=== PATIENT | male | born 1990 | race Hispanic/Latino ===

== ENCOUNTER 2017-09-22 13:26 | Emergency (ER) | payer SELFPAY ==
--- NOTE | 2017-09-22 14:18 | RAD REPORT ---
EXAM DESCRIPTION: CT - Head Brain Wo Cont - 09/22/2017 2:11 pm CLINICAL HISTORY: SEIZURE Headache COMPARISON: Head Brain Wo Cont dated 02/23/2017; Facial Bones W/ Mpr dated 01/03/2017 TECHNIQUE: All CT scans are performed using dose optimization technique as appropriate and may inclu de automated exposure control or mA/KV adjustment according to patient size. FINDINGS: No intracranial hemorrhage, hydrocephalus or extra-axial fluid collection.No areas of brai n edema or evidence of midline shift. The paranasal sinuses and mastoids are clear. The calvarium is intact. IMPRESSION: No acute intracranial abnormality.
[2017-09-22 14:46] LABS: Absolute Lymphocytes (CBC) 2.3 K/uL (0.7-4.9); Absolute Monocytes 0.7 K/uL (0.1-1.3); Absolute Neutrophil 11.6 K/uL (1.8-8.0); Basophils % 0.3 % (0-1.3); Eosinophils % 0.5 % (0-4.4); Hematocrit 44.5 % (39.6-49.0); Lymphocytes % 15.7 % (15.3-44.8); MCH 31.6 pg (27.0-35.0); MCV 95.6 fL (80-100); Monocytes % 4.5 % (3.3-12.3); RBC Red Blood Cell Count 4.66 M/uL (4.33-5.43)
[2017-09-22 14:51] LABS: Protime INR 1.03
[2017-09-22 14:58] LABS: Urine Blood NEGATIVE (NEG); Urine Glucose NEGATIVE (NEG); Urine Protein NEGATIVE (NEG); Urine Specific Gravity 1.015 (1.005-1.030)
[2017-09-22 15:09] LABS: ALT/SGPT 25 U/L (12-78); AST/SGOT 13 U/L (15-37); Alkaline Phosphatase 66 U/L (45-117); BUN Blood Urea Nitrogen 15 mg/dL (7-18); Bicarbonate 27 mmol/L (21-32); Bilirubin Total 0.9 mg/dL (0.2-1.0); Glucose Level 90 mg/dL (74-106); Protein, Total 7.3 g/dL (6.4-8.2); Sodium Level 140 mmol/L (136-145)
[2017-09-22 15:19] LABS: Barbiturates NEGATIVE (NEGATIVE); Benzodiazepines NEGATIVE (NEGATIVE); Cocaine NEGATIVE (NEGATIVE); METHAMPHETAM NEGATIVE (NEGATIVE); Methadone NEGATIVE (NEGATIVE); Opiates NEGATIVE (NEGATIVE); Phencyclidine NEGATIVE (NEGATIVE); THC Cannibis POSITIVE (NEGATIVE)
[2017-09-22 15:22] LABS: Alcohol Serum/Plasma < 3 mg/dL (0-3)
--- NOTE | 2017-09-22 15:59 | ER ---
Nurse's Notes [facility] Name: Jose Schultz Age: 27 yrs Sex: Male : 1990 Arrival Date: 09/22/2017 Time: 13:28 Bed 19 [facility] MD: None, None Diagnosis: Epilepsy and recurrent seizures;Cannabis abuse Presentation: 09/22 13:34 Presenting complaint: Mother states: " He was in bed and had a seizure that started at ph 7:50 and ended at 8:02." Pt reports hx of seizures related to synthetic marijuana use but states that he has not used synthetic since Nov last year. Pt c/o pain in arms and legs, headache and fatigue, denies nausea, pt awake and alert in triage. Transition of care: patient was not received from another setting of care. Onset of symptoms was September 22, 2017. Risk Assessment: Do you want to hurt yourself or someone else? Patient reports no desire to harm self or others. Initial Sepsis Screen: Does the patient meet any 2 criteria? No. Patient's initial sepsis screen is negative. Does the patient have a suspected source of infection? Yes:. Care prior to arrival: None. 13:34 Method Of Arrival: Ambulatory ph 13:34 Acuity: AUDELIA 3 ph Historical: - Allergies: 13:39 No Known Allergies; ph - Home Meds: 13:39 None [Active]; ph - PMHx: 13:39 Seizures; ph - PSHx: 13:39 None; ph - Immunization history:: Adult Immunizations. - Social history:: Smoking status: Patient uses tobacco products, smokes one-half pack cigarettes per day, Patient uses street drugs, marijuana. - Ebola Screening: : Patient negative for fever greater than or equal to 101.5 degrees Fahrenheit, and additional compatible Ebola Virus Disease symptoms. Screenin:43 Abuse screen: Denies threats or abuse. Nutritional screening: No deficits noted. rb1 Tuberculosis screening: No symptoms or risk factors identified. Fall Risk No fall in past 12 months (0 pts). Secondary diagnosis (15 points) seizures, IV access (20 points). Ambulatory Aid- None/Bed Rest/Nurse Assist (0 pts). Gait- Normal/Bed Rest/Wheelchair (0 pts) Mental Status- Oriented to own ability (0 pts). Total Harper Fall Scale indicates Low Risk Score (25-44 pts). Fall prevention measures have been instituted. Side Rails Up X 2 Placed close to Nursing Station 1:1 attendant Assigned to Pt. Frequent Obs/Assesments occuring Family Present and informed to notify staff if they need to leave bedside As available Patient and Family Educated on Fall Prevention Program and strategies. Assessment: 13:43 General: Appears in no apparent distress. comfortable, Behavior is calm, cooperative. rb1 General: Reports fatigue for. Pain: Complains of pain in head, arms, and legs Pain currently is 5 out of 10 on a pain scale. Neuro: Level of Consciousness is awake, alert, obeys commands, Oriented to person, place, time, situation, Reports headache frontal area, since the seizure. Cardiovascular: Capillary refill < 3 seconds is brisk in bilateral fingers. Respiratory: Airway is patent Respiratory effort is even, unlabored, Respiratory pattern is regular, symmetrical. GI: No signs and/or symptoms were reported involving the gastrointestinal system. : No signs and/or symptoms were reported regarding the genitourinary system. Derm: Skin is dry, Skin is normal, Skin temperature is warm. Musculoskeletal: Range of motion: intact in all extremities. 14:38 Reassessment: Patient appears in no apparent distress at this time. No changes from rb1 previously documented assessment. family at bedside. 15:33 Reassessment: Patient appears in no apparent distress at this time. Patient and/or rb1 family updated on plan of care and expected duration. Pain level reassessed. Patient is alert, oriented x 3, equal unlabored respirations, skin warm/dry/pink. 16:21 Reassessment: Patient appears in no apparent distress at this time. No changes from rb1 previously documented assessment. Vital Signs: 13:38 BP 118 / 69; Pulse 81; Resp 18; Temp 98.3; Pulse Ox 98% on R/A; Weight 115.67 kg; ph Height 6 ft. 3 in. (190.50 cm); Pain 5/10; 14:30 BP 119 / 67; Pulse 79; Resp 17; Pulse Ox 99% on R/A; rb1 15:28 BP 121 / 72; Pulse 83; Resp 19; Pulse Ox 99% on R/A; Pain 3/10; rb1 16:18 BP 118 / 64; Pulse 77; Resp 18; Pulse Ox 100% on R/A; rb1 16:37 BP 120 / 75; Pulse 78; Resp 17; Pulse Ox 97% on R/A; rb1 13:38 Body Mass Index 31.87 (115.67 kg, 190.50 cm) ph [place] Coma Score: 13:43 Eye Response: spontaneous(4). Verbal Response: oriented(5). Motor Response: obeys rb1 commands(6). Total: 15. ED Course: 13:28 Patient arrived in ED. sb2 13:28 None, None is Private Physician. sb2 13:38 Triage completed. ph 13:40 Krishna Blas, RAVINDER is PHCP. pm1 13:40 Lior Queen MD is Attending Physician. pm1 13:40 Arm band placed on. ph 13:43 Patient has correct armband on for positive identification. Bed in low position. Call rb1 light in reach. Side rails up X 1. Pulse ox on. NIBP on. 13:43 Seizure precautions initiated. rb1 13:43 Inserted saline lock: 22 gauge in right antecubital area, using aseptic technique. rb1 Blood collected. 14:11 CT Head Brain wo Cont In Process Unspecified. EDNC 14:12 CT completed. Patient tolerated procedure well. Patient moved back from CT. 14:40 Mara Brenner, RN is Primary Nurse. rb1 14:45 EKG done, by semiconductor technician. reviewed by Krishna Blas NP. sm3 15:59 Mathew Arreola MD is Referral Physician. pm1 16:28 No provider procedures requiring assistance completed. IV discontinued, intact, rb1 bleeding controlled, No redness/swelling at site. Pressure dressing applied. Administered Medications: No medications were administered Outcome: 15:59 Discharge ordered by MD. pm1 16:28 Patient left the ED. rb1 16:28 Discharged to home ambulatory, with family. rb1 16:28 Condition: stable 16:28 Discharge instructions given to patient, Instructed on discharge instructions, follow up and referral plans. Demonstrated understanding of instructions, follow-up care, Prescriptions given X none Signatures: Dispatcher [employer] Roxanne Paulino Patricia RN RN Mara Brenner, SIERRA RN rb1 Krishna Blas, RAVINDER HIDE PULLER pm1 Osiris Howell sb2 Maria Teresa Kenyon sm3 Corrections: (The following items were deleted from the chart) 17:54 16:33 Patient left the ED. rb1 rb1
--- NOTE | 2017-09-22 16:00 | EDPHYS ---
Physician Documentation [facility] Name: Jose Schultz Age: 27 yrs Sex: Male : 1990 Arrival Date: 09/22/2017 Time: 13:28 Bed 19 Private MD: None, None ED Physician Lior Queen HPI: 09/22 14:00 This 27 yrs old Male presents to ER via Ambulatory with complaints of Seizure. pm1 17:34 The patient presents after having a single isolated seizure, the episode(s) was pm1 witnessed, by a friend. Character of seizure(s): Loss of consciousness: it is not known if the patient experienced loss of consciousness, Motor activity: generalized, shaking all over, Incontinence: none, Apnea: the patient did not experience apnea, Circulation: the patient did not experience evidence of pulse disturbance. Seizure onset: this morning, at 07:50. Context: occurred at home, occurred while the patient was asleep, Contributing factors: Unknown. Last seizure event related to synthetic marijuana use. Patient admits to using marijuana . Seizure Hx: Cause: Drug abuse. Associated injury: The patient did not suffer any apparent associated injury. Current symptoms: headache, muscle aches to arms and legs. The patient has experienced similar episodes in the past, several times, and the symptoms today are exactly the same. The patient has not recently seen a physician. Historical: - Allergies: 13:39 No Known Allergies; ph - Home Meds: 13:39 None [Active]; ph - PMHx: 13:39 Seizures; ph - PSHx: 13:39 None; ph - Immunization history:: Adult Immunizations. - Social history:: Smoking status: Patient uses tobacco products, smokes one-half pack cigarettes per day, Patient uses street drugs, marijuana. - Ebola Screening: : Patient negative for fever greater than or equal to 101.5 degrees Fahrenheit, and additional compatible Ebola Virus Disease symptoms. ROS: 17:34 Constitutional: Negative for fever, chills, and weight loss, Eyes: Negative for injury, pm1 pain, redness, and discharge, ENT: Negative for injury, pain, and discharge, Neck: Negative for injury, pain, and swelling, Cardiovascular: Negative for chest pain, palpitations, and edema, Respiratory: Negative for shortness of breath, cough, wheezing, and pleuritic chest pain, Abdomen/GI: Negative for abdominal pain, nausea, vomiting, diarrhea, and constipation, Back: Negative for injury and pain, : Negative for injury, bleeding, discharge, and swelling, MS/Extremity: Negative for injury and deformity, Skin: Negative for injury, rash, and discoloration. 17:34 Neuro: Positive for headache, seizure activity, Negative for numbness, tingling, weakness. Exam: 17:34 Constitutional: This is a well developed, well nourished patient who is awake, alert, pm1 and in no acute distress. Head/Face: Normocephalic, atraumatic. Eyes: Pupils equal round and reactive to light, extra-ocular motions intact. Lids and lashes normal. Conjunctiva and sclera are non-icteric and not injected. Cornea within normal limits. Periorbital areas with no swelling, redness, or edema. ENT: Nares patent. No nasal discharge, no septal abnormalities noted. Tympanic membranes are normal and external auditory canals are clear. Oropharynx with no redness, swelling, or masses, exudates, or evidence of obstruction, uvula midline. Mucous membranes moist. Neck: Trachea midline, no thyromegaly or masses palpated, and no cervical lymphadenopathy. Supple, full range of motion without nuchal rigidity, or vertebral point tenderness. No Meningismus. Chest/axilla: Normal chest wall appearance and motion. Nontender with no deformity. No lesions are appreciated. Cardiovascular: Regular rate and rhythm with a normal S1 and S2. No gallops, murmurs, or rubs. Normal PMI, no JVD. No pulse deficits. Respiratory: Lungs have equal breath sounds bilaterally, clear to auscultation and percussion. No rales, rhonchi or wheezes noted. No increased work of breathing, no retractions or nasal flaring. Abdomen/GI: Soft, non-tender, with normal bowel sounds. No distension or tympany. No guarding or rebound. No evidence of tenderness throughout. Back: No spinal tenderness. No costovertebral tenderness. Full range of motion. Skin: Warm, dry with normal turgor. Normal color with no rashes, no lesions, and no evidence of cellulitis. MS/ Extremity: Pulses equal, no cyanosis. Neurovascular intact. Full, normal range of motion. 17:34 Neuro: Orientation: is normal, Mentation: is normal, Cranial nerves: CN II- XII are normal as tested, Cerebellar function: normal finger to nose testing, Motor: moves all fours, strength is normal, strength is 5/5 in all extremities, Sensation: is normal, no obvious gross deficits, Gait: is steady, at a normal pace, without difficulty. Vital Signs: 13:38 BP 118 / 69; Pulse 81; Resp 18; Temp 98.3; Pulse Ox 98% on R/A; Weight 115.67 kg; ph Height 6 ft. 3 in. (190.50 cm); Pain 5/10; 14:30 BP 119 / 67; Pulse 79; Resp 17; Pulse Ox 99% on R/A; rb1 15:28 BP 121 / 72; Pulse 83; Resp 19; Pulse Ox 99% on R/A; Pain 3/10; rb1 16:18 BP 118 / 64; Pulse 77; Resp 18; Pulse Ox 100% on R/A; rb1 16:37 BP 120 / 75; Pulse 78; Resp 17; Pulse Ox 97% on R/A; rb1 13:38 Body Mass Index 31.87 (115.67 kg, 190.50 cm) ph [place] Coma Score: 13:43 Eye Response: spontaneous(4). Verbal Response: oriented(5). Motor Response: obeys rb1 commands(6). Total: 15. MDM: 13:42 Patient medically screened. pm1 15:51 Data reviewed: vital signs. Data interpreted: Pulse oximetry: on room air is 98 %. pm1 Interpretation: normal. Counseling: I had a detailed discussion with the patient and/or guardian regarding: the historical points, exam findings, and any diagnostic results supporting the discharge/admit diagnosis, lab results, radiology results. 09/22 13:53 Order name: CBC with Diff; Complete Time: 15:00 pm1 09/22 13:53 Order name: CMP; Complete Time: 15:22 pm1 09/22 13:53 Order name: UDS; Complete Time: 15:22 pm09/22 13:59 Order name: Acetaminophen; Complete Time: 15:22 pm09/22 13:59 Order name: ETOH Level; Complete Time: 15:22 pm09/22 13:59 Order name: PT-INR; Complete Time: 15:00 pm09/22 13:53 Order name: CT Head Brain wo Cont; Complete Time: 15:00 pm1 09/22 13:53 Order name: IV Saline Lock; Complete Time: 15:06 pm1 09/22 13:53 Order name: Urine Dipstick-Ancillary (obtain specimen); Complete Time: 14:54 pm1 09/22 13:59 Order name: Ptt, Activated; Complete Time: 15:00 pm1 09/22 13:59 Order name: Salicylate; Complete Time: 15:22 pm1 09/22 13:59 Order name: EKG; Complete Time: 13:59 pm1 09/22 13:59 Order name: EKG - Nurse/Tech; Complete Time: 15:07 pm1 09/22 14:54 Order name: Urine Dipstick--Ancillary (enter results); Complete Time: 15:00 eb 09/22 13:59 Order name: Labs collected and sent; Complete Time: 15:06 pm1 Administered Medications: No medications were administered Disposition: 18:03 Co-signature as Attending Physician, Lior Queen MD. rn Disposition: 09/22/17 15:59 Discharged to Home. Impression: Epilepsy and recurrent seizures, Cannabis abuse. - Condition is Stable. - Discharge Instructions: Cannabis Use Disorder, Seizure, Adult, [id number]. - Medication Reconciliation Form, Thank You Letter, Work release form form. - Follow up: Emergency Department; When: As needed; Reason: Worsening of condition. Follow up: Mathew Arreola MD; When: 2 - 3 days; Reason: Recheck today's complaints, Continuance of care, Re-evaluation by your physician. - Problem is new. - Symptoms have improved. Signatures: Dispatcher [employer] EDMS Lior Queen MD MD rn Hall, Patricia, RN RN Mara Crockett RN RN rb1 Krishna Blas, INHALATION THERAPY TEACHER INHALATION THERAPY TEACHER pm1 Corrections: (The following items were deleted from the chart) 16:33 15:59 09/22/2017 15:59 Discharged to Home. Impression: Epilepsy and recurrent seizures; rb1 Cannabis abuse. Condition is Stable. Forms are Medication Reconciliation Form, Thank You Letter, Antibiotic Education, Prescription Opioid Use. Follow up: Emergency Department; When: As needed; Reason: Worsening of condition. Follow up: Mathew Arreola; When: 2 - 3 days; Reason: Recheck today's complaints, Continuance of care, Re-evaluation by your physician. Problem is new. Symptoms have improved. pm1
--- NOTE | 2017-09-23 08:08 | EKG ---
Test Date: 2017-09-22 Test Time: 14:17:07 Acid Etch Operator: HYACINTH MEASUREMENT RESULTS: Intervals: Rate: 70 WY: 166 QRSD: 92 QT: 386 QTc: 416 [place]: P: 1 WY: 166 QRS: 53 T: 13 INTERPRETIVE STATEMENTS: Normal sinus rhythm Normal ECG Compared to ECG 02/23/2017 22:33:13 No significant changes Electronically Signed On 09-23-17 08:03:31 CDT by Daniel Hendricks
== END 2017-09-22 16:33 | disposition home or self-care (01) ==
LOC: ER 13:26
DX: G40.802 Other epilepsy, not intractable, without status epilepticus (principal); F12.10 Cannabis abuse, uncomplicated; F17.210 Nicotine dependence, cigarettes, uncomplicated
CPT/HCPCS: 36415; 70450; 80053; 80307; 80320; 80329; 81003; 85025; 85610; 85730; 93005; 99284

== ENCOUNTER 2017-10-24 16:14 | Emergency (ER) | payer SELFPAY ==
[2017-10-24 16:58] LABS: Absolute Lymphocytes (CBC) 1.1 K/uL (0.7-4.9); Absolute Monocytes 0.6 K/uL (0.1-1.3); Absolute Neutrophil 13.2 K/uL (1.8-8.0); Basophils % 0.1 % (0-1.3); Eosinophils % 0.2 % (0-4.4); Lymphocytes % 7.6 % (15.3-44.8); MCH 31.5 pg (27.0-35.0); MCV 95.2 fL (80-100); MPV 8.3 fL (7.6-11.3); Monocytes % 3.7 % (3.3-12.3); RBC Red Blood Cell Count 4.62 M/uL (4.33-5.43)
--- NOTE | 2017-10-24 17:12 | RAD REPORT ---
EXAM DESCRIPTION: CT - Head Brain Wo Cont - 10/24/2017 4:52 pm CLINICAL HISTORY: Seizure COMPARISON: September 2017 TECHNIQUE: Computed axial tomography of the head was obtained. IV contrast was not requested. All CT scans are performed using dose optimization technique as appropriate and may include automated exposure control or mA/KV adjustment according to patient size. FINDINGS: An intracranial bleed is not seen . The ventricles are normal in caliber. No extra-axial fluid collection is noted. Fluid within the sinuses/ mastoids is not seen. IMPRESSION: No acute intracranial abnormality is seen. If patient's symptoms persist MRI of the bra in would be recommended.
[2017-10-24 17:23] LABS: BUN Blood Urea Nitrogen 15 mg/dL (7-18); Bicarbonate 26 mmol/L (21-32); Glucose Level 142 mg/dL (74-106); Sodium Level 135 mmol/L (136-145)
[2017-10-24 17:46] LABS: Alcohol Serum/Plasma < 3 mg/dL (<3)
[2017-10-24 18:11] LABS: Potassium 3.9 mmol/L (3.5-5.1)
--- NOTE | 2017-10-24 18:47 | EDPHYS ---
Physician Documentation [facility] Name: Jose Schultz Age: 27 yrs Sex: Male : 1990 Arrival Date: 10/24/2017 Time: 16:16 Bed 6 Private MD: None, None ED Physician Primo Loza HPI: 10/24 17:00 This 27 yrs old Male presents to ER via Ambulatory with complaints of Seizure. pm1 17:00 The patient presents with a history of multiple seizures, a total of 2, the episode(s) pm1 was witnessed, by co-worker(s), by family, mother. Character of seizure(s): Loss of consciousness: the patient did not lose consciousness, Motor activity: generalized, Incontinence: incontinent of bladder, Apnea: the patient did not experience apnea, Circulation: the patient did not experience evidence of pulse disturbance. Seizure onset: this morning. Context:. Associated injury: Head/face: left moravian, contusion. The patient has experienced similar episodes in the past, multiple times. The patient has not recently seen a physician, has an appointment scheduled, in 3 day(s), Neurology: Dr. Segundo. Patient with seizure this AM at work. Patient was sent home due to seizure. Patient reports headache to left side of his head with possible contusion. Patient had another seizure at home that was witnessed by his mother. Patient's seizures started about 1 year ago after smoking synthetic marijuana. Patient has continued to use marijuana. Historical: - Allergies: 16:27 No Known Allergies; ch - Home Meds: 16:27 None [Active]; ch - PMHx: 16:27 Seizures; atypical; ch - PSHx: 16:27 None; ch - Immunization history:: Adult Immunizations up to date. - Social history:: Smoking status: Patient uses tobacco products, denies chronic smoking, but will smoke occasionally, Patient uses alcohol, occasionally. street drugs, marijuana. - Ebola Screening: : Patient negative for fever greater than or equal to 101.5 degrees Fahrenheit, and additional compatible Ebola Virus Disease symptoms Patient denies exposure to infectious person Patient denies travel to an Ebola-affected area in the 21 days before illness onset No symptoms or risks identified at this time. ROS: 17:00 Constitutional: Negative for fever, chills, and weight loss, Eyes: Negative for injury, pm1 pain, redness, and discharge, ENT: Negative for injury, pain, and discharge, Neck: Negative for injury, pain, and swelling, Cardiovascular: Negative for chest pain, palpitations, and edema, Respiratory: Negative for shortness of breath, cough, wheezing, and pleuritic chest pain, Abdomen/GI: Negative for abdominal pain, nausea, vomiting, diarrhea, and constipation, Back: Negative for injury and pain, : Negative for injury, bleeding, discharge, and swelling, MS/Extremity: Negative for injury and deformity, Skin: Negative for injury, rash, and discoloration. 17:00 Neuro: Positive for headache, seizure activity, Negative for numbness, weakness. Exam: 17:00 Constitutional: This is a well developed, well nourished patient who is awake, alert, pm1 and in no acute distress. Head/Face: Normocephalic, atraumatic. Eyes: Pupils equal round and reactive to light, extra-ocular motions intact. Lids and lashes normal. Conjunctiva and sclera are non-icteric and not injected. Cornea within normal limits. Periorbital areas with no swelling, redness, or edema. ENT: Nares patent. No nasal discharge, no septal abnormalities noted. Tympanic membranes are normal and external auditory canals are clear. Oropharynx with no redness, swelling, or masses, exudates, or evidence of obstruction, uvula midline. Mucous membranes moist. Neck: Trachea midline, no thyromegaly or masses palpated, and no cervical lymphadenopathy. Supple, full range of motion without nuchal rigidity, or vertebral point tenderness. No Meningismus. Chest/axilla: Normal chest wall appearance and motion. Nontender with no deformity. No lesions are appreciated. Cardiovascular: Regular rate and rhythm with a normal S1 and S2. No gallops, murmurs, or rubs. Normal PMI, no JVD. No pulse deficits. Respiratory: Lungs have equal breath sounds bilaterally, clear to auscultation and percussion. No rales, rhonchi or wheezes noted. No increased work of breathing, no retractions or nasal flaring. Abdomen/GI: Soft, non-tender, with normal bowel sounds. No distension or tympany. No guarding or rebound. No evidence of tenderness throughout. Back: No spinal tenderness. No costovertebral tenderness. Full range of motion. Skin: Warm, dry with normal turgor. Normal color with no rashes, no lesions, and no evidence of cellulitis. MS/ Extremity: Pulses equal, no cyanosis. Neurovascular intact. Full, normal range of motion. 17:00 Neuro: Orientation: is normal, Motor: moves all fours. Vital Signs: 16:28 BP 135 / 78; Pulse 77; Resp 16; Pulse Ox 100% on R/A; Weight 113.4 kg; Height 6 ft. 3 in. (190.50 cm); Pain 8/10; 17:21 BP 119 / 69; Pulse 68; Resp 18; Pulse Ox 100% on R/A; ag 18:47 BP 109 / 62; Pulse 89; Resp 18; Pulse Ox 98% on R/A; ag 16:28 Body Mass Index 31.25 (113.40 kg, 190.50 cm) [place] Coma Score: 16:27 Eye Response: spontaneous(4). Verbal Response: oriented(5). Motor Response: obeys commands(6). Total: 15. MDM: 16:32 Patient medically screened. pm1 18:41 Data reviewed: vital signs. Data interpreted: Pulse oximetry: on room air is 100 %. pm1 Interpretation: normal. Counseling: I had a detailed discussion with the patient and/or guardian regarding: the historical points, exam findings, and any diagnostic results supporting the discharge/admit diagnosis, lab results, radiology results, the need for outpatient follow up, to return to the emergency department if symptoms worsen or persist or if there are any questions or concerns that arise at home. 18:41 ED course: patient wants to go home. Patient does not want to wait for UDS results. pm1 Patient admits to the use of cannabis. Patient with onset of seizures about 1 year ago as the result of using synthetic marijuana. He has an appointment with Dr. Segundo on . Recommended that the patient stops smoking marijuana, because it is possible that he is being exposed to synthetic marijuana . 10/24 16:43 Order name: UDS pm1 10/24 16:44 Order name: Acetaminophen; Complete Time: 18:29 pm1 10/24 16:44 Order name: Basic Metabolic Panel; Complete Time: 18:29 pm1 10/24 16:44 Order name: CBC with Diff; Complete Time: 17:19 pm1 10/24 16:44 Order name: ETOH Level; Complete Time: 18:29 pm1 10/24 16:44 Order name: Salicylate; Complete Time: 18:29 pm1 10/24 16:43 Order name: CT Head Brain wo Cont; Complete Time: 17:19 pm1 10/24 16:44 Order name: Urine Dipstick-Ancillary (obtain specimen); Complete Time: 18:58 pm1 10/24 16:44 Order name: EKG; Complete Time: 16:44 pm1 10/24 16:44 Order name: EKG - Nurse/Tech; Complete Time: 18:22 pm1 10/24 16:44 Order name: IV Saline Lock; Complete Time: 16:49 pm1 10/24 16:44 Order name: Labs collected and sent; Complete Time: 16:49 pm1 10/24 18:55 Order name: Urine Dipstick--Ancillary (enter results) bd 10/24 18:55 Order name: Urine Dipstick-Ancillary EDMS Administered Medications: No medications were administered Disposition: 10/24/17 18:46 Discharged to Home. Impression: Epilepsy and recurrent seizures, Cannabis abuse. - Condition is Stable. - Discharge Instructions: Finding Treatment for Addiction, Cannabis Use Disorder, Seizure, Adult, [id number]. - Family Work Release, SBAR form, Medication Reconciliation Form, Thank You Letter form. - Work release form (10/24/17 19:15). lp1 - Follow up: Emergency Department; When: As needed; Reason: Worsening of condition. Follow up: Reymundo Segundo MD; When: 3 days at scheduled appointment. - Problem is new. - Symptoms have improved. Addendum: 10/27/2017 10:14 Co-signature as Attending Physician, Primo Loza MD I agree with the assessment and k dr plan of care. Signatures: Dispatcher [employer] EDMS Minerva Hunter RN RN ch Verde, Stephanie, RN RN sv Rittger, Kevin, MD MD [facility] Krishna Blas, RAVINDER WINE MAKER pm1 Chelsea Barton RN lp1 Corrections: (The following items were deleted from the chart) 10/24 19:07 18:46 10/24/2017 18:46 Discharged to Home. Impression: Epilepsy and recurrent seizures; sv Cannabis abuse. Condition is Stable. Forms are Medication Reconciliation Form, Thank You Letter, Antibiotic Education, Prescription Opioid Use. Follow up: Emergency Department; When: As needed; Reason: Worsening of condition. Follow up: Reymundo Segundo; When: 3 days at scheduled appointment. Problem is new. Symptoms have improved. pm1
--- NOTE | 2017-10-24 18:47 | ER ---
Nurse's Notes [facility] Name: Jose Schultz Age: 27 yrs Sex: Male : 1990 Arrival Date: 10/24/2017 Time: 16:16 Bed 6 Private MD: None, None Diagnosis: Epilepsy and recurrent seizures;Cannabis abuse Presentation: 10/24 16:25 Presenting complaint: Mother states: he had a seizure this morning at 0730, and then ch again at 1500. when he has a seizure, he makes weird noises, starts moving his arms like he is trying to get something out of the air, he then stood up on the bed and wasn't acting right. he doesn't answer me and get out of the bed staggering, peed on the floor. I got him back on the bed then he started vomiting. Transition of care: patient was not received from another setting of care. Onset of symptoms was October 24, 2017 at 07:30. Risk Assessment: Do you want to hurt yourself or someone else? Patient reports no desire to harm self or others. Initial Sepsis Screen: Does the patient meet any 2 criteria? No. Patient's initial sepsis screen is negative. Does the patient have a suspected source of infection? No. Patient's initial sepsis screen is negative. Care prior to arrival: None. 16:25 Method Of Arrival: Ambulatory 16:25 Acuity: AUDELIA 2 16:28 Note pt is belching and dry heaving, refuses to stop drinking sprite or water to get ch his temp taken. pt is swearing, and smokes "a lot of weed". Triage Assessment: 16:27 General: Appears in no apparent distress. uncomfortable, Behavior is cooperative, ch appropriate for age. Pain: Complains of pain in head, generalized. Neuro: Level of Consciousness is awake, alert, obeys commands, Oriented to person, place, time, situation. Historical: - Allergies: 16:27 No Known Allergies; ch - Home Meds: 16:27 None [Active]; ch - PMHx: 16:27 Seizures; atypical; ch - PSHx: 16:27 None; ch - Immunization history:: Adult Immunizations up to date. - Social history:: Smoking status: Patient uses tobacco products, denies chronic smoking, but will smoke occasionally, Patient uses alcohol, occasionally. street drugs, marijuana. - Ebola Screening: : Patient negative for fever greater than or equal to 101.5 degrees Fahrenheit, and additional compatible Ebola Virus Disease symptoms Patient denies exposure to infectious person Patient denies travel to an Ebola-affected area in the 21 days before illness onset No symptoms or risks identified at this time. Screenin:40 Abuse screen: Denies threats or abuse. Denies injuries from another. Nutritional sv screening: No deficits noted. Tuberculosis screening: No symptoms or risk factors identified. Fall Risk No fall in past 12 months (0 pts). Secondary diagnosis (15 points) seizures, IV access (20 points). Ambulatory Aid- None/Bed Rest/Nurse Assist (0 pts). Gait- Normal/Bed Rest/Wheelchair (0 pts) Mental Status- Oriented to own ability (0 pts). Total Harper Fall Scale indicates Low Risk Score (25-44 pts). Fall prevention measures have been instituted. Side Rails Up X 2 Placed close to Nursing Station Frequent Obs/Assesments occuring Family Present and informed to notify staff if they need to leave bedside As available Patient and Family Educated on Fall Prevention Program and strategies. Assessment: 16:40 General: Appears in no apparent distress. comfortable, Behavior is calm, cooperative, sv appropriate for age, Pt immediately pulled the blanket over his head. Informed pt that I would need to get an IV and blood drawn. Pt stated that he was cold.. Pain: Denies pain. Neuro: Level of Consciousness is awake, alert, obeys commands, Oriented to person, place, time, situation, Moves all extremities. Full function Gait is steady, Speech is normal, Facial symmetry appears normal. Cardiovascular: Patient's skin is warm and dry. Pulses are 3+ in right brachial artery and left brachial artery. Respiratory: Respiratory effort is even, unlabored, Respiratory pattern is regular, symmetrical. GI: No signs and/or symptoms were reported involving the gastrointestinal system. : Parent/caregiver report the patient having that he urinated on the floor earlier. EENT: No signs and/or symptoms were reported regarding the EENT system. Derm: Skin is pink, warm \\T\\ dry. Musculoskeletal: No signs and/or symptoms reported regarding the musculoskeletal system. 17:19 Reassessment: Patient appears in no apparent distress at this time. No changes from sv previously documented assessment. Patient and/or family updated on plan of care and expected duration. Pain level reassessed. Patient is alert, oriented x 3, equal unlabored respirations, skin warm/dry/pink. 18:20 Reassessment: Patient appears in no apparent distress at this time. No changes from sv previously documented assessment. Patient and/or family updated on plan of care and expected duration. Pain level reassessed. Patient is alert, oriented x 3, equal unlabored respirations, skin warm/dry/pink. 19:05 Reassessment: Patient appears in no apparent distress at this time. Patient and/or sv family updated on plan of care and expected duration. Pain level reassessed. Patient is alert, oriented x 3, equal unlabored respirations, skin warm/dry/pink. Vital Signs: 16:28 BP 135 / 78; Pulse 77; Resp 16; Pulse Ox 100% on R/A; Weight 113.4 kg; Height 6 ft. 3 ch in. (190.50 cm); Pain 8/10; 17:21 BP 119 / 69; Pulse 68; Resp 18; Pulse Ox 100% on R/A; ag 18:47 BP 109 / 62; Pulse 89; Resp 18; Pulse Ox 98% on R/A; ag 16:28 Body Mass Index 31.25 (113.40 kg, 190.50 cm) [place] Coma Score: 16:27 Eye Response: spontaneous(4). Verbal Response: oriented(5). Motor Response: obeys commands(6). Total: 15. ED Course: 16:16 Patient arrived in ED. sb2 16:16 None, None is Private Physician. sb2 16:27 Triage completed. 16:28 Arm band placed on left wrist. Patient placed in an exam room. 16:31 Krishna Blas NP is PHCP. pm1 16:31 Primo Loza MD is Attending Physician. pm1 16:33 Lala Marques RN is Primary Nurse. sv 16:35 Patient has correct armband on for positive identification. Placed in gown. Bed in low sv position. Side rails up X2. Adult w/ patient. Seizure precautions initiated. 16:40 Initial lab(s) drawn, by md, sent to lab. Inserted saline lock: 20 gauge in right sv antecubital area, using aseptic technique. Blood collected. Flushed right antecubital with 5 ml normal saline. 16:[address] via stretcher. sv 16:51 CT completed. Patient tolerated procedure well. Patient moved back from CT. vr 16:52 CT Head Brain wo Cont In Process Unspecified. EDMS 17:23 EKG done, by senior service technician. reviewed by Krishna Blas NP. sm3 18:46 Reymundo Segundo MD is Referral Physician. pm1 18:57 Urine Dipstick--Ancillary (enter results) Sent. sv 19:05 No provider procedures requiring assistance completed. IV discontinued, intact, sv bleeding controlled, No redness/swelling at site. Pressure dressing applied. Administered Medications: No medications were administered Outcome: 18:46 Discharge ordered by . pm1 19:05 Discharged to home ambulatory, with family. sv 19:05 Condition: stable 19:05 Discharge instructions given to patient, Instructed on discharge instructions, follow up and referral plans. Demonstrated understanding of instructions, follow-up care. 19:07 Patient left the ED. sv Signatures: Dispatcher [employer] EDID Minerva Hunter, Lala Mckinney RN, ch, RN RN sv Davis, Victoria vr Gallardo, Krishna Hall NP PHARMACY CARE COORDINATOR pm1 Osiris Howell sb2 Maria Teresa Kenyon sm3
[2017-10-24 19:45] LABS: Urine Blood NEGATIVE (NEG); Urine Glucose NEGATIVE (NEG); Urine Protein NEGATIVE (NEG)
[2017-10-24 20:04] LABS: Barbiturates NEGATIVE (NEGATIVE); Benzodiazepines NEGATIVE (NEGATIVE); Cocaine NEGATIVE (NEGATIVE); METHAMPHETAM NEGATIVE (NEGATIVE); Methadone NEGATIVE (NEGATIVE); Opiates NEGATIVE (NEGATIVE); Phencyclidine NEGATIVE (NEGATIVE); THC Cannibis POSITIVE (NEGATIVE)
--- NOTE | 2017-10-24 21:30 | EKG ---
Test Date: 2017-10-24 Test Time: 17:03:31 Rougher Helper: HYACINTH MEASUREMENT RESULTS: Intervals: Rate: 76 NC: 174 QRSD: 104 QT: 350 QTc: 393 [place]: P: 45 NC: 174 QRS: 62 T: 20 INTERPRETIVE STATEMENTS: Normal sinus rhythm Normal ECG Compared to ECG 09/22/2017 14:17:07 No significant changes Electronically Signed On 10-24-17 21:29:59 CDT by Donavon Christian
== END 2017-10-24 19:07 | disposition home or self-care (01) ==
LOC: ER 16:14
DX: F12.10 Cannabis abuse, uncomplicated (principal); Z72.0 Tobacco use
CPT/HCPCS: 36415; 70450; 80048; 80307; 80320; 80329; 81003; 85025; 93005; 99284

== ENCOUNTER 2017-12-12 20:17 | Observation (INO) | payer SELFPAY ==
--- OUTSIDE RECORDS SUMMARY | 2017-12-12 20:32 | XMS REPORT | Continuity of Care Document ---
:1990 Author Organization Interface Problems Problem Status Onset Date Classification Date Comments Source Reported Medications Medication Details Route Status Patient Ordering Order Source Instructions Provider Date Allergies, Adverse Reactions, Alerts Substance Category Reaction Severity Reaction Status Date Comments Source type Reported Immunizations Immunization Date Given Site Status Last Updated Comments Source Results Order Results Value Reference Date Interpretation Comments Source Name Range Vital Signs Vital Sign Value Date Comments Source Encounters Location Location Encounter Encounter Reason Attending ADM DC Status Source Details Type Number For Provider Date Date Visit Outpatient [id number] MARQUISE 10/27 Active [facility] Outpatient [id number] MARQUISE 11/01 Active [facility] Outpatient [id number] MARQUISE 11/29 [facility]2017 Mobile Procedures Procedure Code Date Perfomer Comments Source
[2017-12-12] MEDS ORDERED: NA CHLORIDE 0.9% 1,000 ML ONE ×2 (21:06→23:26)
[2017-12-12] MEDS ORDERED: LEVETIRACETAM 500 MG/5 ML VIAL IV ONE (21:06)
[2017-12-12] MEDS ORDERED: NA CHLORIDE 0.9% 100 ML IV ONE (21:08)
[2017-12-12] MEDS ORDERED: LORazepam 2 MG/ML VIAL ONE (21:32)
[2017-12-12 21:34] LABS: Absolute Lymphocytes (CBC) 1.1 K/uL (0.7-4.9); Absolute Monocytes 0.8 K/uL (0.1-1.3); Absolute Neutrophil 14.4 K/uL (1.8-8.0); Basophils % 0.1 % (0-1.3); Lymphocytes % 6.8 % (15.3-44.8); MCH 32.2 pg (27.0-35.0); MCV 94.8 fL (80-100); MPV 7.8 fL (7.6-11.3); Monocytes % 5.1 % (3.3-12.3); RBC Red Blood Cell Count 4.64 M/uL (4.33-5.43)
[2017-12-12 21:38] LABS: Protime INR 1.15
[2017-12-12 21:56] LABS: ALT/SGPT 19 U/L (12-78); AST/SGOT 12 U/L (15-37); Albumin 4.3 g/dL (3.4-5.0); Alkaline Phosphatase 72 U/L (45-117); BUN Blood Urea Nitrogen 9 mg/dL (7-18); Bicarbonate 24 mmol/L (21-32); Bilirubin Direct 0.3 mg/dL (0-0.2); Bilirubin Total 0.7 mg/dL (0.2-1.0); Glucose Level 112 mg/dL (74-106); Potassium 3.9 mmol/L (3.5-5.1); Protein, Total 7.9 g/dL (6.4-8.2); Sodium Level 137 mmol/L (136-145)
--- NOTE | 2017-12-12 22:59 | EDPHYS ---
Physician Documentation [facility] Name: Jose Schultz Age: 27 yrs Sex: Male : 1990 Arrival Date: 12/12/2017 Time: 20:18 Bed 4 Private MD: ED Physician Duc Simmons HPI: 12/12 21:07 This 27 yrs old Male presents to ER via EMS with complaints of Probable antonio Seizure. 21:07 The patient presents with a history of multiple seizures, a total of 4. Character of antonio seizure(s): Loss of consciousness: it is not known if the patient experienced loss of consciousness, Motor activity: generalized. Seizure onset: just prior to arrival. Context: the seizure(s) was witnessed, by a friend. Seizure Hx: Cause: drug use. Associated injury: The patient did not suffer any apparent associated injury. Current symptoms: confusion. The patient has experienced similar episodes in the past, several times. Historical: - Allergies: 20:28 No Known Allergies; aa1 - Home Meds: 20:28 None [Active]; aa1 - PMHx: 20:28 Seizures; atypical; aa1 - PSHx: 20:28 None; aa1 - Immunization history:: Adult Immunizations unknown. - Social history:: Smoking status: unknown. - Ebola Screening: : Unable to complete screening because patient is disoriented, . - Family history:: not pertinent. - History obtained from: EMS. ROS: 21:07 Constitutional: Negative for fever, chills, and weight loss, Eyes: Negative for injury, antonio pain, redness, and discharge, ENT: Negative for injury, pain, and discharge, Neck: Negative for injury, pain, and swelling, Cardiovascular: Negative for chest pain, palpitations, and edema, Respiratory: Negative for shortness of breath, cough, wheezing, and pleuritic chest pain, Abdomen/GI: Negative for abdominal pain, nausea, vomiting, diarrhea, and constipation, Back: Negative for injury and pain, : Negative for injury, bleeding, discharge, and swelling, MS/Extremity: Negative for injury and deformity, Skin: Negative for injury, rash, and discoloration, Psych: Negative for depression, anxiety, suicide ideation, homicidal ideation, and hallucinations, Allergy/Immunology: Negative for hives, rash, and allergies, Endocrine: Negative for neck swelling, polydipsia, polyuria, polyphagia, and marked weight changes, Hematologic/Lymphatic: Negative for swollen nodes, abnormal bleeding, and unusual bruising. 21:07 Neuro: Positive for altered mental status, seizure activity, weakness. Exam: 21:07 Constitutional: This is a well developed, well nourished patient who is awake, alert, antonio and in no acute distress. Head/Face: Normocephalic, atraumatic. Eyes: Pupils equal round and reactive to light, extra-ocular motions intact. Lids and lashes normal. Conjunctiva and sclera are non-icteric and not injected. Cornea within normal limits. Periorbital areas with no swelling, redness, or edema. ENT: Nares patent. No nasal discharge, no septal abnormalities noted. Tympanic membranes are normal and external auditory canals are clear. Oropharynx with no redness, swelling, or masses, exudates, or evidence of obstruction, uvula midline. Mucous membranes moist. Neck: Trachea midline, no thyromegaly or masses palpated, and no cervical lymphadenopathy. Supple, full range of motion without nuchal rigidity, or vertebral point tenderness. No Meningismus. Chest/axilla: Normal chest wall appearance and motion. Nontender with no deformity. No lesions are appreciated. Cardiovascular: Regular rate and rhythm with a normal S1 and S2. No gallops, murmurs, or rubs. Normal PMI, no JVD. No pulse deficits. Respiratory: Lungs have equal breath sounds bilaterally, clear to auscultation and percussion. No rales, rhonchi or wheezes noted. No increased work of breathing, no retractions or nasal flaring. Abdomen/GI: Soft, non-tender, with normal bowel sounds. No distension or tympany. No guarding or rebound. No evidence of tenderness throughout. Back: No spinal tenderness. No costovertebral tenderness. Full range of motion. Male : Normal genitalia with no discharge or lesions. Skin: Warm, dry with normal turgor. Normal color with no rashes, no lesions, and no evidence of cellulitis. MS/ Extremity: Pulses equal, no cyanosis. Neurovascular intact. Full, normal range of motion. Psych: Awake, alert, with orientation to person, place and time. Behavior, mood, and affect are within normal limits. 21:07 Neuro: Orientation: is normal, appropriate for stated age, no acute changes, Mentation: slow to respond, Memory: is normal, appropriate for stated age, no acute changes, Cranial nerves: grossly normal, is grossly normal based on the patient's age, no acute changes, Motor: is normal, Sensation: is normal, no obvious gross deficits, appropriate Gait: not tested. seizure activity, is not displayed by the patient. 22:57 Neck: ROM/movement: is normal, no acute changes, Meningeal signs: are not present, antonio Kernig's sign is negative, Brudzinski's sign is negative. Vital Signs: 20:18 BP 110 / 56; Pulse 98; Resp 16; Temp 97.6; Pulse Ox 96% ; Weight 113.4 kg; aa1 22:30 BP 147 / 132; Pulse 97; Resp 20 S; Pulse Ox 100% on R/A; cc3 23:20 BP 123 / 63; Pulse 79; Resp 20 S; Pulse Ox 97% on R/A; cc3 12/13 00:18 BP 111 / 68; Pulse 73; Resp 20 S; Temp 99.9; Pulse Ox 97% on R/A; cc3 01:15 BP 125 / 77; Pulse 75; Resp 19 S; Pulse Ox 100% on R/A; cc3 Tommy Coma Score: 12/12 20:20 Eye Response: to voice(3). Verbal Response: confused(4). Motor Response: localizes aa1 pain(5). Total: 12. MDM: 20:25 Patient medically screened. [facility] 21:09 Data reviewed: vital signs, nurses notes, lab test result(s), EKG, radiologic studies, [facility] CT scan. 12/12 20:26 Order name: Acetaminophen; Complete Time: 22:49 [facility] 12/12 20:26 Order name: Basic Metabolic Panel; Complete Time: 22:49 [facility] 12/12 20:26 Order name: CBC with Diff; Complete Time: 22:49 [facility] 12/12 20:26 Order name: ETOH Level; Complete Time: 22:49 [facility] 12/12 20:26 Order name: Hepatic Function; Complete Time: 22:49 [facility] 12/12 20:26 Order name: PT-INR; Complete Time: 22:49 [facility] 12/12 20:26 Order name: Ptt, Activated; Complete Time: 22:49 [facility] 12/12 20:26 Order name: Salicylate; Complete Time: 22:49 [facility] 12/12 20:26 Order name: Urine Drug Screen; Complete Time: 01:23 [facility] 12/12 20:26 Order name: CT Head Brain wo Cont [facility] 12/12 22:54 Order name: Chest Single View XRAY [facility] 12/13 00:19 Order name: Urine Dipstick--Ancillary (enter results) ar 12/12 20:26 Order name: EKG; Complete Time: 20:27 [facility] 12/12 20:26 Order name: EKG - Nurse/Tech; Complete Time: 00:20 [facility] 12/12 20:26 Order name: IV Saline Lock; Complete Time: 21:14 [facility] 12/12 20:26 Order name: Labs collected and sent; Complete Time: 21:14 [facility] 12/12 20:26 Order name: Urine Dipstick-Ancillary (obtain specimen); Complete Time: 00:17 [facility] 12/12 20:26 Order name: Seizure Precautions; Complete Time: 21:14 [facility] 12/12 23:02 Order name: CONS Physician Consult EDMS Administered Medications: 21:10 Drug: NS 0.9% 1000 ml Route: IV; Rate: 1 bolus; Site: left antecubital; 3 22:15 Follow up: Response: No adverse reaction; IV Status: Completed infusion; IV Intake: cc3 1000ml 21:10 Drug: Keppra 1000 mg Route: IV; Rate: per protocol; Site: left antecubital; cc3 21:30 Follow up: Response: No adverse reaction; IV Status: Completed infusion; IV Intake: cc3 100ml 21:30 Drug: Ativan 1 mg Route: IVP; Site: left antecubital; 3 22:00 Follow up: Response: No adverse reaction [facility] 23:30 Drug: Rocephin - (cefTRIAXone) 1 grams Route: IVPB; Infused Over: 30 mins; Site: left cc3 antecubital; 12/13 00:00 Follow up: Response: No adverse reaction; IV Status: Completed infusion; IV Intake: [id number] 12/12 23:36 Drug: NS 0.9% 1000 ml Route: IV; Rate: 1 bolus; Site: left antecubital; 3 12/13 00:45 Follow up: Response: No adverse reaction; IV Status: Completed infusion; IV Intake: cc3 1000ml Disposition: 12/12/17 22:59 Hospitalization ordered by Shila Ko for Observation. Preliminary diagnosis are Epileptic seizures related to external causes, Abuse of non-psychoactive substances, Elevated white blood cell count. - Bed requested for Telemetry/MedSurg (observation). - Status is Observation. cc3 - Condition is Stable. - Problem is new. - Symptoms have improved. UTI on Admission? No Signatures: Dispatcher [employer] EDMS Jenny Chambers RN RN Caro Melendez RN RN aa1 Duc Simmons MD MD cha Cordel, Charlene cc3 Corrections: (The following items were deleted from the chart) 00:34 12/12 22:59 Hospitalization Ordered by Shila Ko MD for Observation. Preliminary kl diagnosis is Epileptic seizures related to external causes; Abuse of non-psychoactive substances; Elevated white blood cell count. Bed requested for Telemetry/MedSurg (observation). Status is Observation. Condition is Stable. Problem is new. Symptoms have improved. UTI on Admission? No. [facility] 12/13 01:32 00:34 12/12/2017 22:59 Hospitalization Ordered by Shila Ko MD for Observation. cc3 Preliminary diagnosis is Epileptic seizures related to external causes; Abuse of non-psychoactive substances; Elevated white blood cell count. Bed requested for Telemetry/MedSurg (observation). Status is Observation. Condition is Stable. Problem is new. Symptoms have improved. UTI on Admission? No. kl
--- NOTE | 2017-12-12 22:59 | ER ---
Nurse's Notes [facility] Name: Jose Schultz Age: 27 yrs Sex: Male : 1990 Arrival Date: 12/12/2017 Time: 20:18 Bed 4 Private MD: Diagnosis: Epileptic seizures related to external causes;Abuse of non-psychoactive substances;Elevated white blood cell count Presentation: 12/12 20:18 Presenting complaint: EMS states: pt's girlfriend reports that pt has had 4 seizures aa1 today. Reports they have been to pt's residence 4 times for seizures today and each time pt was very agitated and refused transport to the ED but this last time they arrived pt was less responsive so he was brought to ED. States pt became agitated again en route to ED and was given Versed 5mg IM. Upon arrival to ED pt responds to stimuli by curling up in position. Refuses to cooperate with triage assessment and H\T\P. EMS reports pt states he does not take any medications for seizures and that pt has known hx of using synthetic marijuana. Transition of care: patient was not received from another setting of care. Onset of symptoms was December 12, 2017. Risk Assessment: Do you want to hurt yourself or someone else? Unable to obtain. Initial Sepsis Screen: Does the patient meet any 2 criteria? Altered Mental Status. HR > 90 bpm. Does the patient have a suspected source of infection? No. Patient's initial sepsis screen is negative. Care prior to arrival: None. 20:18 Method Of Arrival: EMS: [facility] aa1 20:18 Acuity: AUDELIA 2 aa1 Triage Assessment: 20:20 General: Appears in no apparent distress. Behavior is drowsy, listless, uncooperative. aa1 20:20 Pain: Unable to use pain scale. Neuro: Level of Consciousness is awake, confused, cc3 listless, Oriented to person. Historical: - Allergies: 20:28 No Known Allergies; aa1 - Home Meds: 20:28 None [Active]; aa1 - PMHx: 20:28 Seizures; atypical; aa1 - PSHx: 20:28 None; aa1 - Immunization history:: Adult Immunizations unknown. - Social history:: Smoking status: unknown. - Ebola Screening: : Unable to complete screening because patient is disoriented, . - Family history:: not pertinent. - History obtained from: EMS. Screenin:20 Abuse screen: Denies threats or abuse. Denies injuries from another. Nutritional cc3 screening: No deficits noted. Tuberculosis screening: No symptoms or risk factors identified. Fall Risk Secondary diagnosis (15 points) seizures, on seizure precautions. Assessment: 20:18 General: see triage assessment. cc3 21:20 Reassessment: Patient appears in no apparent distress at this time. Patient and/or cc3 family updated on plan of care and expected duration. Pain level reassessed. patient still anxious, father is at bedside. 22:15 Reassessment: patient's father went home and left his number [phone]. cc3 22:59 Reassessment: patient for admission, waiting for admission orders. cc3 23:30 Reassessment: Patient appears in no apparent distress at this time. Patient and/or cc3 family updated on plan of care and expected duration. Pain level reassessed. patient's calm now and lying comfortably in bed, no complaints noted. 12/13 00:38 Reassessment: Patient appears in no apparent distress at this time. Patient and/or cc3 family updated on plan of care and expected duration. Pain level reassessed. Patient is alert, oriented x 3, equal unlabored respirations, skin warm/dry/pink. 01:00 Reassessment: Patient appears in no apparent distress at this time. Patient and/or cc3 family updated on plan of care and expected duration. Pain level reassessed. Patient is alert, oriented x 3, equal unlabored respirations, skin warm/dry/pink. Room available at 425, report handed over to RN Shirley Patel for continuity of care. 01:20 Reassessment: Patient left ER vitally stable by stretcher escorted by planning technician Kenneth [email or web address] for admission. Vital Signs: 12/12 20:18 BP 110 / 56; Pulse 98; Resp 16; Temp 97.6; Pulse Ox 96% ; Weight 113.4 kg; aa1 22:30 BP 147 / 132; Pulse 97; Resp 20 S; Pulse Ox 100% on R/A; cc3 23:20 BP 123 / 63; Pulse 79; Resp 20 S; Pulse Ox 97% on R/A; cc3 12/13 00:18 BP 111 / 68; Pulse 73; Resp 20 S; Temp 99.9; Pulse Ox 97% on R/A; cc3 01:15 BP 125 / 77; Pulse 75; Resp 19 S; Pulse Ox 100% on R/A; cc3 [place] Coma Score: 12/12 20:20 Eye Response: to voice(3). Verbal Response: confused(4). Motor Response: localizes aa1 pain(5). Total: 12. ED Course: 20:18 Patient arrived in ED. aa1 20:20 Arm band placed on right wrist. cc3 20:20 Patient has correct armband on for positive identification. Placed in gown. Bed in low cc3 position. Call light in reach. Side rails up X2. Seizure precautions initiated. 20:24 Duc Simmons MD is Attending Physician. [facility] 20:26 Triage completed. aa1 21:10 Initial lab(s) drawn, by ms, sent to lab. Inserted saline lock: 20 gauge in left ms antecubital area, using aseptic technique. Blood collected. 21:21 Acetaminophen Sent. ds4 21:21 Basic Metabolic Panel Sent. ds4 21:21 CBC with Diff Sent. ds4 21:21 ETOH Level Sent. ds4 21:21 Hepatic Function Sent. ds4 21:21 PT-INR Sent. ds4 21:22 Ptt, Activated Sent. ds4 21:22 Salicylate Sent. ds4 21:36 Radiology exam delayed due to per ED staff pt is not ready at this time. nj 22:45 CT Head Brain wo Cont In Process Unspecified. EDMS 22:58 Shila Ko MD is Hospitalizing Provider. [facility] 23:07 X-ray completed. Portable x-ray completed in exam room. Patient tolerated procedure kw well. 23:08 Chest Single View XRAY In Process Unspecified. EDMS 10 00:20 Urine Drug Screen Sent. ds4 00:20 EKG done, by ED staff, reviewed by Duc Simmons MD. ds4 01:00 No provider procedures requiring assistance completed. Patient admitted, IV remains in cc3 place. Administered Medications: 12/12 21:10 Drug: NS 0.9% 1000 ml Route: IV; Rate: 1 bolus; Site: left antecubital; cc3 22:15 Follow up: Response: No adverse reaction; IV Status: Completed infusion; IV Intake: cc3 1000ml 21:10 Drug: Keppra 1000 mg Route: IV; Rate: per protocol; Site: left antecubital; cc3 21:30 Follow up: Response: No adverse reaction; IV Status: Completed infusion; IV Intake: cc3 100ml 21:30 Drug: Ativan 1 mg Route: IVP; Site: left antecubital; cc3 22:00 Follow up: Response: No adverse reaction cc3 23:30 Drug: Rocephin - (cefTRIAXone) 1 grams Route: IVPB; Infused Over: 30 mins; Site: left cc3 antecubital; 12/13 00:00 Follow up: Response: No adverse reaction; IV Status: Completed infusion; IV Intake: [id number] 12/12 23:36 Drug: NS 0.9% 1000 ml Route: IV; Rate: 1 bolus; Site: left antecubital; cc3 12/13 00:45 Follow up: Response: No adverse reaction; IV Status: Completed infusion; IV Intake: cc3 1000ml Intake: 12/12 21:30 IV: 100ml; Total: 100ml. cc3 22:15 IV: 1000ml; Total: 1100ml. cc3 12/13 00:00 IV: 50ml; Total: 1150ml. cc3 00:45 IV: 1000ml; Total: 2150ml. cc3 Outcome: 12/12 22:59 Decision to Hospitalize by Provider. antonio 12/13 01:00 Admitted to Tele accompanied by tech, via stretcher, room 425, with chart, Report cc3 called to SIERRA Patel Condition: stable Instructed on the need for admit. 01:32 Patient left the ED. cc3 Signatures: Dispatcher [employer] Caro Howell RN RN aa1 Duc Simmons MD MD cha Solis, Maria ms Whitley, Kimberlee kw Swanson, Donovan ds4 Jordan, Nathan nj Cordel, Charlene cc3 Corrections: (The following items were deleted from the chart) 00:32 00:18 BP 111 / 68; Pulse 73bpm; Resp 20bpm; Spontaneous; Pulse Ox 97% RA; cc3 cc3
[2017-12-12] MEDS ORDERED: NA CHLORIDE 0.9% 50 ML IV ONE (23:26)
[2017-12-12] MEDS ORDERED: CEFTRIAXONE 1000 MG/VIAL ONE (23:26)
[2017-12-13] MEDS ORDERED: ONDANSETRON 4 MG/2 ML VIAL IV PRN (00:12)
[2017-12-13] MEDS ORDERED: LORazepam 2 MG/ML VIAL IV PRN (00:12)
[2017-12-13] MEDS ORDERED: MORPHINE 2 MG/ML SYR IV PRN (00:12)
[2017-12-13] MEDS ORDERED: ACETAMINOPHEN 500 MG TAB PO PRN (00:12)
[2017-12-13] MEDS ORDERED: NA CHLORIDE 0.9% 1,000 ML IV SCH (01:00)
[2017-12-13 01:12] LABS: Barbiturates NEGATIVE (NEGATIVE); Benzodiazepines POSITIVE (NEGATIVE); Cocaine NEGATIVE (NEGATIVE); METHAMPHETAM NEGATIVE (NEGATIVE); Methadone NEGATIVE (NEGATIVE); Opiates NEGATIVE (NEGATIVE); Phencyclidine NEGATIVE (NEGATIVE); THC Cannibis POSITIVE (NEGATIVE)
[2017-12-13 01:55] LABS: Urine Blood NEGATIVE (NEG); Urine Glucose NEGATIVE (NEG); Urine Protein TRACE (NEG); Urine Specific Gravity 1.015 (1.005-1.030); Urine pH 5.5 (5.0-7.0)
[2017-12-13 02:18] VITALS: BMI 31.2
--- NOTE | 2017-12-13 02:34 | P.HP ---
Certification for Inpatient Patient admitted to: Observation With expected LOS: <2 Midnights Patient will require the following post-hospital care: None Practitioner: I am a practitioner with admitting privileges, knowledge of patient current condition, hospital course, and medical plan of care. Services: Services provided to patient in accordance with Admission requirements found in Title 42 Section 412.3 of the Code of Federal Regulations Patient History Date of Service: 12/13/17 Reason for admission: New onset seizures History of Present Illness: Patient is a 27yo who was admitted to the hospital with multiple seizures. Patient has been smoking marijuana and synthetic marijuana for over a year. He states he had some abnormal activity about a year ago when he started smoking the synthetic marijuana. He did this because he was on parole. He was needing to be monitored regularly. He started smoking synthetic so it would not be detected. He had been smoking on more of the synthetic as of late NE came into the hospital with multiple seizure activity. He was started on anti epileptics and admitted to the hospital for further treatment. Allergies No Known Allergies Allergy (Verified 12/13/17 01:47) Home Medications: NK [No Home Meds] 12/13/17 - Past Medical/Surgical History Diabetic: No -: Seizure activity - Family History Father History Unknown: Yes - Social History Smoking Status: Current every day smoker Alcohol use: Yes CD- Drugs: Yes Place of Residence: Home Review of Systems 10-point ROS is otherwise unremarkable Physical Examination - Vital Signs Temperature: 99.9 F Blood Pressure: 125/77 Pulse: 75 Respirations: 19 - Physical Exam General: Alert, In no apparent distress, Oriented x3 HEENT: Atraumatic, PERRLA, Mucous membr. moist/pink, EOMI, Sclerae nonicteric Neck: Supple, 2+ carotid pulse no bruit, No LAD, Without JVD or thyroid abnormality Respiratory: Clear to auscultation bilaterally, Normal air movement Cardiovascular: Regular rate/rhythm, Normal S1 S2, No murmurs Gastrointestinal: Normal bowel sounds, Soft and benign, Non-distended, No tenderness Musculoskeletal: No clubbing, No swelling, No tenderness Integumentary: No rashes Neurological: Normal gait, Normal speech, Normal strength at 5/5 x4 extr, Normal tone, Normal affect Lymphatics: No axilla or inguinal lymphadenopathy - Studies Laboratory Data (last 24 hrs) 12/12/17 21:10: PT 13.6 H, INR 1.15, APTT 27.7 12/12/17 21:10: WBC 16.4 H, Hgb 14.9, Hct 44.0, Plt Count 278 12/12/17 21:10: Sodium 137, Potassium 3.9, BUN 9, Creatinine 1.30, Glucose 112 H , Total Bilirubin 0.7, AST 12 L, ALT 19, Alkaline Phosphatase 72 Assessment & Plan - Problems (Diagnosis) (1) Status epilepticus Current Visit: Yes Status: Acute (2) Synthetic cannabis-induced anxiety disorder Current Visit: Yes Status: Acute - Plan Plan: 1. Anti epileptics 2. EEG 3. Counseled regarding cessation of synthetic marijuana 4. Neurology consultation 5. Out of bed and ambulate 6. GI and DVT prophylaxis - Advance Directives Does patient have a Living Will: No Does patient have a Durable POA for Healthcare: No - Code Status/Comfort Care Code Status Assessed: Yes Code Status: Full Code Critical Care: No Time Spent Managing PTS Care (In Minutes): 50
[2017-12-13 07:26] VITALS: BP 125/77; TEMP 99.9
--- NOTE | 2017-12-13 07:33 | EKG ---
Test Date: 2017-12-13 Test Time: 00:14:48 [employer] Cell Assembler: DEVENDRA MEASUREMENT RESULTS: Intervals: Rate: 85 WA: 144 QRSD: 100 QT: 368 QTc: 437 [place]: P: 41 WA: 144 QRS: 86 T: 34 INTERPRETIVE STATEMENTS: Normal sinus rhythm Normal ECG Compared to ECG 10/24/2017 17:03:31 No significant changes Electronically Signed On 12-13-17 07:33:09 CDT by Donavon Christian
--- NOTE | 2017-12-13 08:08 | RAD REPORT ---
EXAM DESCRIPTION: CT - Head Brain Wo Cont - 12/12/2017 10:45 pm CLINICAL HISTORY: Transient alteration of awareness, confusion, altered mental status A preliminary report was provided at the time of the study and reviewed prior to final report. COMPARISON: CT head October 24, 2017 TECHNIQUE: Axial 5 mm thick images of the head were obtained without IV contrast. All CT scans are performed using dose optimization technique as appropriate and may include automated exposure control or mA/KV adjustment according to patient size. FINDINGS: No intracranial hemorrhage, mass, edema or shift of mid-line structures. No acute infarcti on changes seen. No abnormal extra-axial fluid collections. Ventricles are normal. Mastoid air cells and visualized portions of the paranasal sinuses are clear. No acute bony findings. IMPRESSION: Negative non-contrast CT head examination.
--- NOTE | 2017-12-13 08:17 | RAD REPORT ---
EXAM DESCRIPTION: RAD - Chest Single View - 12/12/2017 11:11 pm CLINICAL HISTORY: Seizure, shortness of breath COMPARISON: None. TECHNIQUE: AP portable chest image was obtained 2257 hours . FINDINGS: No focal lung parenchymal process. There is slight motion degradation present. Heart and v asculature are normal. No measurable pleural effusion and no pneumothorax. No acute bony abnormality seen. No acute aortic findings suspected. IMPRESSION: No acute cardiopulmonary process.
--- NOTE | 2017-12-13 08:26 | RAD REPORT ---
EXAM DESCRIPTION: MRI - Brain W/Wo Cont - 12/13/2017 8:09 am CLINICAL HISTORY: Seizures COMPARISON: CT head December 12 TECHNIQUE: Sagittal and axial T1-weighted images were obtained. Axial PD/heavily T2-weighted and T2- FLAIR images were obtained along with axial DWI/ADC mapping sequences. Coronal heavily T2 weighted a nd T1 weighted sequences obtained. Axial and coronal post-contrast T1-weighted images were also obta ined. A 20 ml Multihance contrast following utilized. FINDINGS: No intracranial hemorrhage, mass or acute infarction. There is no edema or shift of midli ne structures. No extra-axial fluid collections. Clancy-matter/white matter junction is preserved. Sig nal voids are seen as a normal finding in the major intracranial vessels. Heterogeneity within the si gmoid and transverse sinuses on postcontrast imaging is normal enhancement in flow related artifacts. Venous sinus thrombosis is not suspected. No focal scarring, heterotopic clancy matter, developmental abnormality or other brain parenchymal abnormality as a seizure focus. Ventricles are normal. No glob e or orbital content abnormality. Sella and suprasellar regions are normal. Post-contrast images show normal enhancement. No dural thickening. Mastoid air cells and paranasal sinuses are clear. IMPRESSION: Negative contrast enhanced MRI of the Brain. No focal finding as a seizure focus.
[2017-12-13] MEDS ORDERED: levETIRAcetam 500 MG in NA CHLORIDE 0.9% 100 ML IV SCH (09:00)
[2017-12-13] MEDS ORDERED: MORPHINE 4 MG/ML SYR IV PRN (09:11)
--- NOTE | 2017-12-13 11:07 | P.DS ---
Admission Date: 12/12/17 Discharge Date: 12/13/17 Primary Care Provider: None; Neurology-Dr. Segundo Disposition: AMA-LEFT AGAINST MEDICAL ADVIC Discharge Condition: GOOD Reason for Admission: New onset seizures Consultations: MRI brain: COMPARISON: CT head December 12 TECHNIQUE: Sagittal and axial T1-weighted images were obtained. Axial PD/ heavily T2-weighted and T2-FLAIR images were obtained along with axial DWI/ADC mapping sequences. Coronal heavily T2 weighted and T1 weighted sequences obtained. Axial and coronal post-contrast T1-weighted images were also obtained. A 20 ml Multihance contrast following utilized. FINDINGS: No intracranial hemorrhage, mass or acute infarction. There is no edema or shift of midline structures. No extra-axial fluid collections. Clancy- matter/white matter junction is preserved. Signal voids are seen as a normal finding in the major intracranial vessels. Heterogeneity within the sigmoid and transverse sinuses on postcontrast imaging is normal enhancement in flow related artifacts. Venous sinus thrombosis is not suspected. No focal scarring, heterotopic clancy matter, developmental abnormality or other brain parenchymal abnormality as a seizure focus. Ventricles are normal. No globe or orbital content abnormality. Sella and suprasellar regions are normal. Post-contrast images show normal enhancement. No dural thickening. Mastoid air cells and paranasal sinuses are clear. IMPRESSION: Negative contrast enhanced MRI of the Brain. No focal finding as a seizure focus. Chest x-ray: Unremarkable. 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 Patient with history of seizures in the past likely related to synthetic marijuana use. Patient with noncompliance with medication. Patient continues to use marijuana. Patient admitted for treatment. Hospital Course: Patient presented with recurrent seizures. Patient with history of seizures likely secondary to synthetic marijuana use. Patient seen by neurology as an outpatient. Patient reports that he was started on medication but he discontinued medication as the medication cause increased drowsiness. The patient admits to using marijuana. He occasionally uses synthetic marijuana at present. Patient was observed and started on anti seizure medication. Patient refused to take medication. MRI brain unremarkable. Patient was to have EEG and neurology evaluation. Patient refused to stay for EEG and a neurology evaluation and recommendation. Patient reports that he does not plan to use anti seizure medication. He understands the risks of not taking medication. He also understands the risks of continuing use of synthetic marijuana and marijuana. Patient was advised to stay. Patient refused. Patient left the hospital against medical advice. Patient signed AMA papers. Recommendation is for the patient to follow up with neurology as an outpatient to further monitor. Cessation education also provided. Patient is to continue with seizure precaution including no swimming, driving, or working heavy machinery. He is not to be on ladders or elevated structures. Fall precautions provided. Vital Signs/Physical Exam: Temp Pulse Resp BP Pulse Ox 99.9 F 75 19 125/77 98 12/13/17 07:27 12/13/17 07:27 12/13/17 07:27 12/13/17 07:27 12/13/17 04:00 General: Alert, In no apparent distress, Oriented x3, Cooperative HEENT: Atraumatic, Mucous membr. moist/pink Neck: Supple Respiratory: Clear to auscultation bilaterally, Normal air movement Cardiovascular: Normal pulses, Regular rate/rhythm Gastrointestinal: Normal bowel sounds, Soft and benign, Non-distended, No tenderness, No masses, No rebound, No guarding Musculoskeletal: No contractures, No erythema, No tenderness, No warmth Integumentary: No tenderness/swelling, No erythema, No warmth, No cyanosis Neurological: Normal speech, Normal strength at 5/5 x4 extr, Normal tone Lymphatics: No axilla or inguinal lymphadenopathy Laboratory Data at Discharge: WBC 16.4 K/uL (4.3-10.9) H 12/12/17 21:10 Hgb 14.9 g/dL (13.6-17.9) 12/12/17 21:10 Hct 44.0 % (39.6-49.0) 12/12/17 21:10 Plt Count 278 K/uL (152-406) 12/12/17 21:10 PT 13.6 SECONDS (9.5-12.5) H 12/12/17 21:10 INR 1.15 12/12/17 21:10 APTT 27.7 SECONDS (24.3-36.9) 12/12/17 21:10 Sodium 137 mmol/L (136-145) 12/12/17 21:10 Potassium 3.9 mmol/L (3.5-5.1) 12/12/17 21:10 BUN 9 mg/dL (7-18) 12/12/17 21:10 Creatinine 1.30 mg/dL (0.55-1.3) 12/12/17 21:10 Glucose 112 mg/dL (74-106) H 12/12/17 21:10 Total Bilirubin 0.7 mg/dL (0.2-1.0) 12/12/17 21:10 AST 12 U/L (15-37) L 12/12/17 21:10 ALT 19 U/L (12-78) 12/12/17 21:10 Alkaline Phosphatase 72 U/L (45-117) 12/12/17 21:10 Home Medications: NK [No Home Meds] 12/13/17 Patient Discharge Instructions: 1. Patient will need to follow up with PCP in 1 week to follow up this hospitalization. 2. Patient presented with recurrent seizures. Patient with history of seizures likely secondary to synthetic marijuana use. Patient seen by neurology as an outpatient. Patient reports that he was started on medication but he discontinued medication as the medication cause increased drowsiness. The patient admits to using marijuana. He occasionally uses synthetic marijuana at present. Patient was observed and started on anti seizure medication. Patient refused to take medication. MRI brain unremarkable. Patient was to have EEG and neurology evaluation. Patient refused to stay for EEG and a neurology evaluation and recommendation. Patient reports that he does not plan to use anti seizure medication. He understands the risks of not taking medication. He also understands the risks of continuing use of synthetic marijuana and marijuana. Patient was advised to stay. Patient refused. Patient left the hospital against medical advice. Patient signed AMA papers. Recommendation is for the patient to follow up with neurology as an outpatient to further monitor. Cessation education also provided. 3. Patient is to continue with seizure precaution including no swimming, driving, or working heavy machinery. He is not to be on ladders or elevated structures. Fall precautions provided. Diet: Regular Activity: Seizure precaution Time spent managing pt's care (in minutes): 55
[2017-12-13 11:23] VITALS: O2SAT 98
== END 2017-12-13 10:50 | disposition left against medical advice (07) ==
LOC: ER 20:17 → ERHOLD 22:59 → 4TH 12-13 01:08
PROVIDERS: ADMIT Hospitalist; ATTEND Hospitalist
DX: R56.9 Unspecified convulsions (principal); F12.10 Cannabis abuse, uncomplicated; F17.210 Nicotine dependence, cigarettes, uncomplicated; Z91.14 Patient's other noncompliance with medication regimen
CPT/HCPCS: 36415; 70450; 70553; 71045; 80048; 80076; 80307; 80320; 80329; 81003; 85025; 85610; 85730; 93005; 96361; 96365; 96367; 96375; 99285; A9577; G0378; J1953; J2270; J2405; J7030

== ENCOUNTER 2018-03-11 13:58 | Emergency (ER) | payer SELFPAY ==
--- OUTSIDE RECORDS SUMMARY | 2018-03-11 14:00 | XMS REPORT | Continuity of Care Document ---
[...] Number For Provider Date Date Visit Outpatient [id number] MARQUISE 10/27 Active [facility] [place] Outpatient [id number] MARQUISE 11/01 Active [facility] [place] Outpatient [id number] MARQUISE 11/29 [facility]2017 [place] Procedures Procedure Code Date Perfomer Comments Source
[2018-03-11] MEDS ORDERED: NA CHLORIDE 0.9% 1,000 ML ONE (14:51)
[2018-03-11] MEDS ORDERED: LORazepam 2 MG/ML VIAL ONE (14:51)
[2018-03-11] MEDS ORDERED: NA CHLORIDE 0.9% 100 ML IV ONE (14:51)
[2018-03-11] MEDS ORDERED: FOSPHENYTOIN PE 500 MG/10 ML VIAL ONE (14:52)
[2018-03-11 16:26] LABS: Absolute Neutrophil 18.4 K/uL (1.8-8.0); Basophils % 0.2 % (0-1.3); Eosinophils % 0.1 % (0-4.4); Hematocrit 45.7 % (39.6-49.0); Lymphocytes % 4.7 % (15.3-44.8); MPV 7.8 fL (7.6-11.3); Monocytes % 4.7 % (3.3-12.3); RBC Red Blood Cell Count 4.77 M/uL (4.33-5.43)
[2018-03-11 16:30] LABS: Protime INR 1.01
[2018-03-11 16:47] LABS: ALT/SGPT 20 U/L (12-78); AST/SGOT 9 U/L (15-37); Albumin 4.5 g/dL (3.4-5.0); Alkaline Phosphatase 62 U/L (45-117); BUN Blood Urea Nitrogen 11 mg/dL (7-18); Bicarbonate 23 mmol/L (21-32); Bilirubin Direct 0.1 mg/dL (0-0.2); Bilirubin Total 0.3 mg/dL (0.2-1.0); Glucose Level 79 mg/dL (74-106); Potassium 4.4 mmol/L (3.5-5.1); Protein, Total 8.3 g/dL (6.4-8.2); Sodium Level 140 mmol/L (136-145)
--- NOTE | 2018-03-11 17:18 | RAD REPORT ---
EXAM DESCRIPTION: CT - Head Brain Wo Cont - 03/11/2018 4:55 pm CLINICAL HISTORY: Seizure with head injury COMPARISON: December 2017 TECHNIQUE: Computed axial tomography of the head was obtained. IV contrast was not requested. All CT scans are performed using dose optimization technique as appropriate and may include automated exposure control or mA/KV adjustment according to patient size. FINDINGS: Left frontal scalp hematoma is present without underlying skull fracture An intracranial bleed is not seen . The ventricles are normal in caliber. No extra-axial fluid collection is noted. Fluid within the sinuses/ mastoids is not seen. IMPRESSION: No acute intracranial abnormality is seen. If patient's symptoms persist MRI of the bra in would be recommended.
[2018-03-11 17:36] LABS: Platelet Estimate ADEQ
[2018-03-11 17:37] LABS: Blood Morphology Comment NOT SEEN (NOT SEEN)
--- NOTE | 2018-03-11 18:10 | ER ---
Nurse's Notes [facility] Name: Jose Schultz Age: 27 yrs Sex: Male : 1990 Arrival Date: 03/11/2018 Time: 14:06 Bed 26 Private MD: Diagnosis: Epilepsy and recurrent seizures Presentation: 03/11 14:08 Presenting complaint: EMS states: 3 seizures in one hour, pt is known seizure pt, non tl3 compliant with meds, unknown medication over one year old full bottle, hematoma to left side of forehead. Transition of care: patient was not received from another setting of care. Onset of symptoms was March 11, 2018. Risk Assessment: Do you want to hurt yourself or someone else? Patient reports no desire to harm self or others. Initial Sepsis Screen: Does the patient meet any 2 criteria? No. Patient's initial sepsis screen is negative. Does the patient have a suspected source of infection? No. Patient's initial sepsis screen is negative. Care prior to arrival: None. 14:08 Method Of Arrival: EMS: [facility] tl3 14:08 Acuity: AUDELIA 3 tl3 Triage Assessment: 14:11 General: Appears in no apparent distress. well developed, well nourished, pt curled up tl3 in position, does not like to be disturbed, able to get basic vital signs, states that he is in no pain at this time. General: Behavior is drowsy. Pain: Denies pain. EENT: No deficits noted. No signs and/or symptoms were reported regarding the EENT system. Neuro: Level of Consciousness is obeys commands, lethargic. Cardiovascular: Heart tones S1 S2 present Patient's skin is warm and dry. Respiratory: Airway is patent Respiratory effort is even, unlabored, Respiratory pattern is regular, symmetrical, Breath sounds are coarse bilaterally. GI: No signs and/or symptoms were reported involving the gastrointestinal system. : No signs and/or symptoms were reported regarding the genitourinary system. Derm: Bruising that is bright red, on left forehead. Musculoskeletal: No signs and/or symptoms reported regarding the musculoskeletal system. Historical: - Allergies: 14:11 No Known Allergies; tl3 - PMHx: 14:11 Seizures; atypical; tl3 - PSHx: 14:11 None; tl3 - Immunization history:: Adult Immunizations unknown. - Social history:: Smoking status: unknown. - Ebola Screening: : No symptoms or risks identified at this time. Screenin:24 Abuse screen: Denies threats or abuse. Nutritional screening: No deficits noted. tl3 Tuberculosis screening: No symptoms or risk factors identified. Fall Risk Secondary diagnosis (15 points) seizures. Assessment: 14:15 Reassessment: Reassessment: called into room by pt girl friend, pt starting to have tl3 another seizure, started at 1415 and lasted for 2 minutes, pt was tonic clonic, seizure precautions in place O\T\ placed during activity, pt was somewhat combative directly after seizure stopped, IV placed to RAC, labs drawn and seizure pads placed on bed. 16:00 Reassessment: No changes from previously documented assessment. pt refuses to allow lab tl3 to redraw, does not want to be messed with only wants to sleep. 17:15 Reassessment: Patient appears in no apparent distress at this time. pt allowed blood tl3 draw for labs. 18:24 Reassessment: Patient appears in no apparent distress at this time. No changes from tl3 previously documented assessment. Alejandro at bedside discussing POC. Vital Signs: 14:15 BP 121 / 58; Pulse 93; Resp 18; Pulse Ox 98% on R/A; tl3 17:15 BP 101 / 66; Pulse 78; Resp 18; Pulse Ox 98% on R/A; tl3 18:36 BP 102 / 68; Pulse 76; Resp 18; Pulse Ox 99% on R/A; tl3 Tommy Coma Score: 18:36 Eye Response: spontaneous(4). Verbal Response: oriented(5). Motor Response: obeys tl3 commands(6). Total: 15. ED Course: 14:06 Patient arrived in ED. tl3 14:10 Triage completed. tl3 14:15 No provider procedures requiring assistance completed. Initial lab(s) drawn, by me, tl3 sent to lab. Inserted saline lock: 20 gauge in right antecubital area, using aseptic technique. Blood collected. 14:15 Patient has correct armband on for positive identification. Bed in low position. Call tl3 light in reach. Side rails up X2. Adult w/ patient. 14:15 Seizure precautions initiated. tl3 14:24 Alejandro Solis PA is PHCP. jr8 14:24 Duc Simmons MD is Attending Physician. jr8 14:37 EKG done, by ED staff, reviewed by Alejandro LI. ed1 14:39 Gunjan Ramos, RN is Primary Nurse. tl3 16:55 CT Head Brain wo Cont In Process Unspecified. EDMS 18:09 Reymundo Segundo MD is Referral Physician. jr8 18:24 IV discontinued, intact, bleeding controlled, No redness/swelling at site. Pressure tl3 dressing applied. 18:37 Arm band placed on. tl3 Administered Medications: 14:40 Drug: CEREbyx 1 grams Route: IVPB; Site: right antecubital; Delivery: Primary tubing; tl3 15:15 Follow up: IV Status: Completed infusion; IV Intake: 100ml tl3 18:14 Not Given (not needed): Ativan 2 mg IVP once tl3 Intake: 15:15 IV: 100ml; Total: 100ml. tl3 Outcome: 18:10 Discharge ordered by MD. jr8 18:24 Discharged to home ambulatory. tl3 18:24 Condition: stable 18:24 Discharge instructions given to patient, family, Instructed on discharge instructions, follow up and referral plans. medication usage, Demonstrated understanding of instructions, follow-up care, medications, Prescriptions given X 1. 18:37 Patient left the ED. tl3 Signatures: Dispatcher [employer] [facility] Kati Jones, WELT WHEELER WELT WHEELER ed1 Alejandro Solis PA PA jr8 Gunjan Ramos, RN RN tl3 Corrections: (The following items were deleted from the chart) 18:19 18:16 Reassessment: tl3 tl3 18:22 18:21 Reassessment: No changes from previously documented assessment. pt refuses to tl3 allow lab to redraw, does not want to be messed with only wants to sleep tl3
--- NOTE | 2018-03-11 18:11 | EDPHYS ---
Physician Documentation [facility] Name: Jose Schultz Age: 27 yrs Sex: Male : 1990 Arrival Date: 03/11/2018 Time: 14:06 Bed 26 Private MD: ED Physician Duc Simmons HPI: 03/11 16:21 This 27 yrs old Male presents to ER via EMS with complaints of Seizure. jr8 16:21 The patient presents with a history of multiple seizures, a total of 4, that last 2 jr8 minute(s). Character of seizure(s): Loss of consciousness: the patient experienced loss of consciousness, Motor activity: generalized, Apnea: the patient did not experience apnea, Circulation: the patient did not experience evidence of pulse disturbance, Eye movements: are unknown. Seizure onset: today. Associated injury: Head/face: contusion, swelling. Current symptoms: postictal. The patient has not experienced similar symptoms in the past. The patient has not recently seen a physician. History of seizures. Non compliant with his medicine. Girlfriend found synthetic 51wan at house today after he had his first seizure. Since then had 2 others at home and one upon arrival to ED . Historical: - Allergies: 14:11 No Known Allergies; tl3 - PMHx: 14:11 Seizures; atypical; tl3 - PSHx: 14:11 None; tl3 - Immunization history:: Adult Immunizations unknown. - Social history:: Smoking status: unknown. - Ebola Screening: : No symptoms or risks identified at this time. ROS: 16:21 Eyes: Negative for injury, pain, redness, and discharge, ENT: Negative for injury, jr8 pain, and discharge, Neck: Negative for injury, pain, and swelling, Cardiovascular: Negative for chest pain, palpitations, and edema, Respiratory: Negative for shortness of breath, cough, wheezing, and pleuritic chest pain, Abdomen/GI: Negative for abdominal pain, nausea, vomiting, diarrhea, and constipation, Back: Negative for injury and pain, MS/Extremity: Negative for injury and deformity. 16:21 Skin: Positive for ecchymosis, swelling, of the forehead. 16:21 Neuro: Positive for seizure activity. Exam: 16:21 Eyes: Pupils equal round and reactive to light, extra-ocular motions intact. Lids and jr8 lashes normal. Conjunctiva and sclera are non-icteric and not injected. Cornea within normal limits. Periorbital areas with no swelling, redness, or edema. ENT: Nares patent. No nasal discharge, no septal abnormalities noted. Tympanic membranes are normal and external auditory canals are clear. Oropharynx with no redness, swelling, or masses, exudates, or evidence of obstruction, uvula midline. Mucous membranes moist. Neck: Trachea midline, no thyromegaly or masses palpated, and no cervical lymphadenopathy. Supple, full range of motion without nuchal rigidity, or vertebral point tenderness. No Meningismus. Cardiovascular: Regular rate and rhythm with a normal S1 and S2. No gallops, murmurs, or rubs. Normal PMI, no JVD. No pulse deficits. Respiratory: Lungs have equal breath sounds bilaterally, clear to auscultation and percussion. No rales, rhonchi or wheezes noted. No increased work of breathing, no retractions or nasal flaring. Abdomen/GI: Soft, non-tender, with normal bowel sounds. No distension or tympany. No guarding or rebound. No evidence of tenderness throughout. Back: No spinal tenderness. No costovertebral tenderness. Full range of motion. Skin: Warm, dry with normal turgor. Normal color with no rashes, no lesions, and no evidence of cellulitis. MS/ Extremity: Pulses equal, no cyanosis. Neurovascular intact. Full, normal range of motion. Neuro: Awake and alert, GCS 15, oriented to person, place, time, and situation. Cranial nerves II-XII grossly intact. Motor strength 5/5 in all extremities. Sensory grossly intact. Cerebellar exam normal. Normal gait. 16:21 Head/face: Noted is ecchymosis, that is mild, of the forehead, hematoma, that is mild, of the forehead. Vital Signs: 14:15 BP 121 / 58; Pulse 93; Resp 18; Pulse Ox 98% on R/A; tl3 17:15 BP 101 / 66; Pulse 78; Resp 18; Pulse Ox 98% on R/A; tl3 18:36 BP 102 / 68; Pulse 76; Resp 18; Pulse Ox 99% on R/A; tl3 Bison Coma Score: 18:36 Eye Response: spontaneous(4). Verbal Response: oriented(5). Motor Response: obeys tl3 commands(6). Total: 15. MDM: 14:24 Patient medically screened. [facility] 18:00 Data reviewed: vital signs, nurses notes, lab test result(s), EKG, radiologic studies, jr8 CT scan, and as a result, I will discharge patient. Data interpreted: Pulse oximetry: on room air is 100 %. Interpretation: normal. Counseling: I had a detailed discussion with the patient and/or guardian regarding: the historical points, exam findings, and any diagnostic results supporting the discharge/admit diagnosis, lab results, radiology results, the need for outpatient follow up, a neurologist, to return to the emergency department if symptoms worsen or persist or if there are any questions or concerns that arise at home. Response to treatment: the patient's symptoms have markedly improved after treatment. ED course: Patient feeling much better. A\T\O x4. No complaints at this time. Talked to him about seizure medication compliance and drug use. Patient stated that he probably should start back on his medications but probably wont take them. Doesn't know if he will f/u with neurologist either. Patient understands the risks of doing that. Significant other stated that she would take care of it and have him follow up. Would come back if worse . 03/11 14:38 Order name: Acetaminophen 03/11 14:38 Order name: Basic Metabolic Panel 03/11 14:38 Order name: CBC with Diff; Complete Time: 17:54 03/11 14:38 Order name: ETOH Level; Complete Time: 16:40 03/11 14:38 Order name: Hepatic Function; Complete Time: 16:52 03/11 14:38 Order name: PT-INR; Complete Time: 16:42 03/11 14:38 Order name: Ptt, Activated; Complete Time: 16:42 03/11 14:38 Order name: Salicylate; Complete Time: 17:24 03/11 14:39 Order name: Acetaminophen Level; Complete Time: 16:52 EDMN 03/11 14:39 Order name: Basic Metabolic Panel; Complete Time: 16:52 EDMS 03/11 16:32 Order name: CT Head Brain wo Cont; Complete Time: 17:24 03/11 17:35 Order name: Manual Differential; Complete Time: 17:54 [facility] 03/11 14:38 Order name: EKG; Complete Time: 14:39 [facility] 03/11 14:38 Order name: EKG - Nurse/Tech; Complete Time: 14:40 8 03/11 14:38 Order name: IV Saline Lock; Complete Time: 18:15 8 03/11 14:38 Order name: Labs collected and sent; Complete Time: 18:15 jr8 Administered Medications: 14:40 Drug: CEREbyx 1 grams Route: IVPB; Site: right antecubital; Delivery: Primary tubing; tl3 15:15 Follow up: IV Status: Completed infusion; IV Intake: 100ml tl3 18:14 Not Given (not needed): Ativan 2 mg IVP once tl3 Disposition: 03/11/18 18:10 Discharged to Home. Impression: Epilepsy and recurrent seizures. - Condition is Stable. - Discharge Instructions: Seizure, Adult. - Prescriptions for Keppra 500 mg Oral Tablet - take 1 tablet by ORAL route every 12 hours; 20 tablet. - Medication Reconciliation Form, Thank You Letter, Antibiotic Education, Prescription Opioid Use form. - Follow up: Reymundo Segundo MD; When: 2 - 3 days; Reason: Recheck today's complaints, Continuance of care, Re-evaluation by your physician. - Problem is new. - Symptoms have improved. Addendum: 03/15/2018 08:02 Co-signature as Attending Physician, Duc Simmons MD I agree with the assessment and c aleman plan of care. Signatures: Dispatcher [employer] [facility] Duc Simmons MD MD cha Roszak, Josh, PA PA jr8 Gunjan Ramos, SIERRA RN tl3 Corrections: (The following items were deleted from the chart) 03/11 17:35 16:55 CBC Smear Scan ordered. [facility] 18:37 18:10 03/11/2018 18:10 Discharged to Home. Impression: Epilepsy and recurrent seizures. tl3 Condition is Stable. Forms are Medication Reconciliation Form, Thank You Letter, Antibiotic Education, Prescription Opioid Use. Follow up: Reymundo Segundo; When: 2 - 3 days; Reason: Recheck today's complaints, Continuance of care, Re-evaluation by your physician. Problem is new. Symptoms have improved. jr8
[2018-03-11 18:44] VITALS: BP 102/68; O2SAT 99
--- NOTE | 2018-03-12 13:32 | EKG ---
Test Date: 2018-03-11 Test Time: 14:30:09 [employer] Registrar: STACIE MEASUREMENT RESULTS: Intervals: Rate: 91 IL: 180 QRSD: 104 QT: 392 QTc: 482 [place]: P: 49 IL: 180 QRS: 77 T: 22 INTERPRETIVE STATEMENTS: Normal sinus rhythm Prolonged QT Abnormal ECG Compared to ECG 12/13/2017 00:14:48 Prolonged QT interval now present Electronically Signed On 03-12-18 13:22:00 [employer] PITCHER by Daniel Hendricks
== END 2018-03-11 18:37 | disposition home or self-care (01) ==
LOC: ER 13:58
DX: G40.802 Other epilepsy, not intractable, without status epilepticus (principal)
CPT/HCPCS: 36415; 70450; 80048; 80076; 80320; 80329; 85025; 85610; 85730; 93005; 96365; 99284; J7030; Q2009

== ENCOUNTER 2018-05-07 12:44 | Emergency (ER) | payer SELFPAY ==
--- OUTSIDE RECORDS SUMMARY | 2018-05-07 12:46 | XMS REPORT | Continuity of Care Document ---
[...] Number For Provider Date Date Visit Outpatient [id number] MARQUISE 10/27 Active [facility] [place] Outpatient [id number] MARQUISE 11/01 Active [facility] [place] Outpatient [id number] MARQUISE 11/29 [facility]2017 [place] Procedures Procedure Code Date Perfomer Comments Source
[2018-05-07 13:28] LABS: Absolute Lymphocytes (CBC) 1.8 K/uL (0.7-4.9); Absolute Monocytes 0.4 K/uL (0.1-1.3); Basophils % 0.3 % (0-1.3); Eosinophils % 1.3 % (0-4.4); Hematocrit 41.6 % (39.6-49.0); Lymphocytes % 24.2 % (15.3-44.8); MPV 7.8 fL (7.6-11.3); Monocytes % 5.2 % (3.3-12.3); RBC Red Blood Cell Count 4.36 M/uL (4.33-5.43)
[2018-05-07] MEDS ORDERED: LORazepam 2 MG/ML VIAL ONE (13:28)
[2018-05-07] MEDS ORDERED: levETIRAcetam 1,000 MG in NA CHLORIDE 0.9% 100 ML IV ONE (13:30)
[2018-05-07 13:34] LABS: Protime INR 1.02
--- NOTE | 2018-05-07 13:55 | RAD REPORT ---
EXAM DESCRIPTION: CT - [id number] - 05/07/2018 1:38 pm CLINICAL HISTORY: Seizure, fall, head and neck injury COMPARISON: None. TECHNIQUE: Axial 5 mm thick images of the head were obtained. Axial 2 mm thick images of the cervic al spine were obtained with sagittal and coronal reconstruction images generated and reviewed. All CT scans are performed using dose optimization technique as appropriate and may include automated exposure control or mA/KV adjustment according to patient size. FINDINGS: No intracranial hemorrhage, mass, edema or acute intracranial finding. No suspicion for ac yuhaaviatam infarction. No extra-axial fluid collections. Mastoid air cells and paranasal sinuses are clear. No globe or orbit abnormality seen. No developmental abnormality evident. No finding as a seizure foc us. Cervical body height and alignment are normal. No disk space narrowing. No fracture or acute bony abn ormality. No paraspinal mass or hematoma. IMPRESSION: Negative CT head examination for acute or significant finding. Negative CT cervical spine examination for acute or significant finding.
[2018-05-07 13:57] LABS: ALT/SGPT 22 U/L (12-78); AST/SGOT 14 U/L (15-37); Alkaline Phosphatase 66 U/L (45-117); BUN Blood Urea Nitrogen 15 mg/dL (7-18); Bicarbonate 25 mmol/L (21-32); Bilirubin Total 0.5 mg/dL (0.2-1.0); Glucose Level 74 mg/dL (74-106); Potassium 3.8 mmol/L (3.5-5.1); Protein, Total 7.5 g/dL (6.4-8.2); Sodium Level 140 mmol/L (136-145)
[2018-05-07] MEDS ORDERED: NA CHLORIDE 0.9% 1,000 ML ONE (14:40)
--- NOTE | 2018-05-07 15:51 | EDPHYS ---
Physician Documentation [facility] Name: Jose Schultz Age: 27 yrs Sex: Male : 1990 Arrival Date: 05/07/2018 Time: 12:50 Bed 6 Private MD: ED Physician William Grayson HPI: 05/07 13:30 This 27 yrs old Male presents to ER via Ambulatory with complaints of Probable pm1 Seizure. 13:30 The patient presents after having a single isolated seizure, that lasted an unknown pm1 period of time. Seizure onset: just prior to arrival. Context: occurred at work, occurred while the patient was in bathroom. Contributing factors: suspected or documented drug use, synthetic marijuana and tramadol. Seizure Hx: Cause: drug abuse and non-compliance with medication, Keppra, Seizure medications: Keppra. Associated injury: Head/face: contusion, Neck: contusion. EMS care: none. Current symptoms: Currently, the patient is not experiencing any symptoms, the patient feels back to baseline. The patient has experienced similar episodes in the past, multiple times. The patient has not recently seen a physician. Patient in the restroom at work and co-worker found him on the floor. Patient with history of seizure activity from lack of compliance with Keppra and with synthetic marijuana abuse. Historical: - Allergies: 12:53 No Known Allergies; aa5 - Home Meds: 12:53 Keppra Oral [Active]; Tramadol Oral [Active]; aa5 - PMHx: 12:53 Seizures; atypical; aa5 - PSHx: 12:53 None; aa5 - Immunization history:: Adult Immunizations unknown. - Ebola Screening: : No symptoms or risks identified at this time. - Social history:: Smoking status: Patient uses tobacco products, denies chronic smoking, but will smoke occasionally. ROS: 13:30 Constitutional: Negative for fever, chills, and weight loss, Eyes: Negative for injury, pm1 pain, redness, and discharge, ENT: Negative for injury, pain, and discharge, Neck: Negative for injury, pain, and swelling, Cardiovascular: Negative for chest pain, palpitations, and edema, Respiratory: Negative for shortness of breath, cough, wheezing, and pleuritic chest pain, Abdomen/GI: Negative for abdominal pain, nausea, vomiting, diarrhea, and constipation, Back: Negative for injury and pain, : Negative for injury, bleeding, discharge, and swelling, MS/Extremity: Negative for injury and deformity, Skin: Negative for injury, rash, and discoloration. 13:30 Neuro: Positive for seizure activity, Negative for headache, numbness, weakness. Exam: 13:30 Constitutional: This is a well developed, well nourished patient who is awake, alert, pm1 and in no acute distress. Head/Face: Normocephalic, atraumatic. Eyes: Pupils equal round and reactive to light, extra-ocular motions intact. Lids and lashes normal. Conjunctiva and sclera are non-icteric and not injected. Cornea within normal limits. Periorbital areas with no swelling, redness, or edema. ENT: Nares patent. No nasal discharge, no septal abnormalities noted. Tympanic membranes are normal and external auditory canals are clear. Oropharynx with no redness, swelling, or masses, exudates, or evidence of obstruction, uvula midline. Mucous membranes moist. 13:30 Chest/axilla: Normal chest wall appearance and motion. Nontender with no deformity. No lesions are appreciated. Cardiovascular: Regular rate and rhythm with a normal S1 and S2. No gallops, murmurs, or rubs. Normal PMI, no JVD. No pulse deficits. Respiratory: Lungs have equal breath sounds bilaterally, clear to auscultation and percussion. No rales, rhonchi or wheezes noted. No increased work of breathing, no retractions or nasal flaring. Abdomen/GI: Soft, non-tender, with normal bowel sounds. No distension or tympany. No guarding or rebound. No evidence of tenderness throughout. Back: No spinal tenderness. No costovertebral tenderness. Full range of motion. Skin: Warm, dry with normal turgor. Normal color with no rashes, no lesions, and no evidence of cellulitis. MS/ Extremity: Pulses equal, no cyanosis. Neurovascular intact. Full, normal range of motion. 13:30 Neck: External neck: contusion right side of neck, C-spine: vertebral tenderness, is not appreciated. 13:30 Neuro: Orientation: is normal, Mentation: is normal, Memory: is normal, Cranial nerves: CN II- XII are normal as tested, Motor: is normal, moves all fours, Sensation: is normal, no obvious gross deficits. Vital Signs: 12:52 Weight 113.4 kg (R); Height 6 ft. 3 in. (190.50 cm) (R); Pain 0/10; aa5 12:55 BP 116 / 74; Pulse 76; Resp 16 S; Temp 98.0(TE); Pulse Ox 99% on R/A; Pain 0/10; aa5 13:15 BP 154 / 83; Pulse 114; Resp 20 S; Pulse Ox 100% on Non-rebreather mask; aa5 13:30 BP 133 / 82; Pulse 119; Resp 22 S; Pulse Ox 100% on Non-rebreather mask; aa5 13:40 BP 114 / 42; Pulse 96; Resp 20 S; Pulse Ox 100% on Non-rebreather mask; aa5 13:45 BP 115 / 53; Pulse 94; Resp 20 S; Pulse Ox 100% on Non-rebreather mask; aa5 13:50 BP 105 / 47; Pulse 90; Resp 24 S; Pulse Ox 100% on Non-rebreather mask; aa5 14:17 BP 103 / 46; Pulse 76; Resp 24; Pulse Ox 100% ; jb1 14:25 BP 92 / 46; Pulse 75; Resp 18 S; Pulse Ox 100% on R/A; aa5 14:40 BP 97 / 63; Pulse 75; Resp 16 S; Pulse Ox 98% on R/A; aa5 15:00 BP 96 / 50; Pulse 71; Resp 22 S; Pulse Ox 99% on R/A; aa5 15:15 BP 96 / 62; Pulse 70; Resp 20 S; Pulse Ox 97% on R/A; aa5 15:32 BP 108 / 64; Pulse 64; Resp 20 S; Pulse Ox 98% on R/A; aa5 16:28 BP 108 / 62; Pulse 66; Resp 18 S; Temp 98.3(TE); Pulse Ox 100% on R/A; Pain 0/10; aa5 12:52 Body Mass Index 31.25 (113.40 kg, 190.50 cm) aa5 14:25 TRANSPORTATION EQUIPMENT PAINTER notified of decreased BP aa5 Tommy Coma Score: 12:53 Eye Response: spontaneous(4). Verbal Response: oriented(5). Motor Response: obeys aa5 commands(6). Total: 15. MDM: 12:51 Patient medically screened. pm1 15:50 Data reviewed: vital signs. Data interpreted: Pulse oximetry: on room air is 98 %. pm1 Interpretation: normal. Counseling: I had a detailed discussion with the patient and/or guardian regarding: the historical points, exam findings, and any diagnostic results supporting the discharge/admit diagnosis, lab results, the need for outpatient follow up, for definitive care, a neurologist, to return to the emergency department if symptoms worsen or persist or if there are any questions or concerns that arise at home. 05/07 12:56 Order name: CBC with Diff; Complete Time: 13:56 pm1 05/07 12:56 Order name: CMP; Complete Time: 14:04 pm1 05/07 12:56 Order name: ETOH Level; Complete Time: 14:04 pm1 05/07 12:58 Order name: Acetaminophen; Complete Time: 14:04 pm1 05/07 12:58 Order name: PT-INR; Complete Time: 13:56 pm1 05/07 12:56 Order name: CT Head C Spine; Complete Time: 13:56 pm1 05/07 12:58 Order name: Ptt, Activated; Complete Time: 13:56 pm1 05/07 12:58 Order name: Salicylate; Complete Time: 13:56 pm1 05/07 12:56 Order name: C-Collar; Complete Time: 13:23 pm1 05/07 12:56 Order name: IV Saline Lock; Complete Time: 13:23 pm1 05/07 12:56 Order name: EKG; Complete Time: 12:57 pm1 05/07 12:56 Order name: EKG - Nurse/Tech; Complete Time: 13:23 pm1 Administered Medications: 13:17 Drug: Ativan 2 mg Route: IVP; Site: right antecubital; aa5 13:20 Follow up: Response: No adverse reaction aa5 13:32 Drug: Ativan 1 mg Route: IVP; Site: right antecubital; aa5 13:34 Follow up: Response: No adverse reaction; No adverse reaction. Pt calm at this time aa5 13:48 Drug: Keppra 1000 mg Route: IV; Rate: calculated rate; Site: right antecubital; aa5 14:03 Follow up: Response: No adverse reaction; IV Status: Completed infusion aa5 13:53 CANCELLED (Physician Discretion): Ativan 1 mg IVP once aa5 14:31 Drug: NS 0.9% 1000 ml Route: IV; Rate: 1000 ml; Site: right antecubital; aa5 15:15 Follow up: IV Status: Completed infusion; IV Intake: 1000ml aa5 Disposition: 05/08 11:55 Co-signature as Attending Physician, William Grayson MD. Disposition: 05/07/18 15:50 Discharged to Home. Impression: Epilepsy and recurrent seizures, Abuse of non-psychoactive substances. - Condition is Stable. - Discharge Instructions: Seizure, Adult, [id number]. - Prescriptions for Keppra 500 mg Oral Tablet - take 1 tablet by ORAL route every 12 hours; 20 tablet. - Medication Reconciliation Form, Thank You Letter, Antibiotic Education, Prescription Opioid Use form. - Follow up: Emergency Department; When: As needed; Reason: Worsening of condition. Follow up: Reymundo Segundo; When: 2 - 3 days; Reason: Recheck today's complaints, Continuance of care, Re-evaluation by your physician. - Problem is new. - Symptoms have improved. Signatures: Dispatcher [employer] EDMS Clare Somers RN RN aa5 Krishna Blas, TRANSPORTATION EQUIPMENT PAINTER TRANSPORTATION EQUIPMENT PAINTER pm1 William Grayson MD MD Corrections: (The following items were deleted from the chart) 05/07 13:53 13:17 Ativan 1 mg IVP once ordered. pm1 aa5 13:53 13:52 Ativan 1 mg IVP once ordered. aa5 aa5 15:52 15:50 05/07/2018 15:50 Discharged to Home. Impression: Epilepsy and recurrent seizures. pm1 Condition is Stable. Forms are Medication Reconciliation Form, Thank You Letter, Antibiotic Education, Prescription Opioid Use. Follow up: Emergency Department; When: As needed; Reason: Worsening of condition. Follow up: Reymundo Segundo; When: 2 - 3 days; Reason: Recheck today's complaints, Continuance of care, Re-evaluation by your physician. Problem is new. Symptoms have improved. pm1 16:42 15:52 05/07/2018 15:50 Discharged to Home. Impression: Epilepsy and recurrent seizures; aa5 Abuse of non-psychoactive substances. Condition is Stable. Discharge Instructions: Seizure, Adult, [id number]. Prescriptions for Keppra 500 mg Oral Tablet - take 1 tablet by ORAL route every 12 hours; 20 tablet. and Forms are Medication Reconciliation Form, Thank You Letter, Antibiotic Education, Prescription Opioid Use. Follow up: Emergency Department; When: As needed; Reason: Worsening of condition. Follow up: Reymundo Segundo; When: 2 - 3 days; Reason: Recheck today's complaints, Continuance of care, Re-evaluation by your physician. Problem is new. Symptoms have improved. pm1
--- NOTE | 2018-05-07 15:51 | ER ---
Nurse's Notes [facility] Name: Jose Schultz Age: 27 yrs Sex: Male : 1990 Arrival Date: 05/07/2018 Time: 12:50 Bed 6 Private MD: Diagnosis: Epilepsy and recurrent seizures;Abuse of non-psychoactive substances Presentation: 05/07 12:50 Presenting complaint: EMS states: pt was found unresponsive by co-worker. EMS reports aa5 pt was altered and uncooperative upon scene arrival. Pt does not recall event. Pt reports he has not taken his Keppra for a few days. Pt currently A \\T\\ O x 4. EMS reports pt refused c-collar. Pt reports occasional use of synthetic marijuana. Transition of care: patient was not received from another setting of care. Onset of symptoms was May 07, 2018. Care prior to arrival: Glucose check: 121. 12:50 Method Of Arrival: Ambulatory aa5 12:50 Acuity: AUDELIA 3 aa5 12:50 Risk Assessment: Do you want to hurt yourself or someone else? Patient reports no aa5 desire to harm self or others. 12:50 Initial Sepsis Screen: Does the patient meet any 2 criteria? No. Patient's initial aa5 sepsis screen is negative. Does the patient have a suspected source of infection? No. Patient's initial sepsis screen is negative. Historical: - Allergies: 12:53 No Known Allergies; aa5 - Home Meds: 12:53 Keppra Oral [Active]; Tramadol Oral [Active]; aa5 - PMHx: 12:53 Seizures; atypical; aa5 - PSHx: 12:53 None; aa5 - Immunization history:: Adult Immunizations unknown. - Ebola Screening: : No symptoms or risks identified at this time. - Social history:: Smoking status: Patient uses tobacco products, denies chronic smoking, but will smoke occasionally. Screenin:13 Abuse screen: Denies threats or abuse. Nutritional screening: No deficits noted. aa5 Tuberculosis screening: No symptoms or risk factors identified. Fall Risk Fall in past 12 months (25 points). IV access (20 points). Total Harper Fall Scale indicates High Risk Score (45 or more points). Fall prevention measures have been instituted. Side Rails Up X 2 Placed Close to Nursing Station. Assessment: 12:52 General: Appears comfortable, Behavior is calm, cooperative. Pain: Denies pain. Neuro: aa5 Level of Consciousness is awake, alert, obeys commands, Oriented to person, place, time, situation, Full Time Paramedic are equal bilaterally Moves all extremities. Speech is normal, Facial symmetry appears normal, Pupils are PERRLA, Pt unable to recall event, pt continues to ask questions about what happened, pt's significant other at bedside explaining what happened. . Cardiovascular: Heart tones S1 S2 present Rhythm is regular. Respiratory: Airway is patent Respiratory effort is even, unlabored, Respiratory pattern is regular, symmetrical, Breath sounds are clear bilaterally. GI: Abdomen is round Bowel sounds present X 4 quads. Abd is soft and non tender X 4 quads. Patient currently denies nausea, vomiting. : No signs and/or symptoms were reported regarding the genitourinary system. EENT: No signs and/or symptoms were reported regarding the EENT system. Derm: Skin is pink, warm \\T\\ dry. Swelling and redness noted to back of neck, pt denies neck pain. Musculoskeletal: Range of motion: intact in all extremities. 13:10 Reassessment: Pt refused c-collar, pt educated about need for c-collar and importance. aa5 Pt states "I don't want it" . 13:17 Reassessment: Seizure activity noted, lasting 15 seconds. Pt became diaphoretic. O2 via aa5 non-rebreather. Pt currently post-ictal. C-collar applied at this time per QUARTER TRIMMER. . 13:25 Reassessment: Pt taken to CT accompanied by me, technician, and lead neurodiagnostic technologist. O2 via aa5 non-rebreather, on monitor. . 13:30 Reassessment: Pt uncooperative in CT, pt attempting to get out of bed. QUARTER TRIMMER notified, and aa5 Ativan 1mg IVP order received. . 13:47 Reassessment: Pt back from CT scan . aa5 13:50 Reassessment: Pt drowsy and sleepy at this time. Pt moves and opens eyes to tactile aa5 stimuli. Equal unlabored respirations, skin is pink/warm/dry . 14:40 Reassessment: Pt resting in bed with eyes closed, equal unlabored respirations, skin is aa5 pink/warm/dry. . 15:32 Reassessment: Pt resting in bed with eyes closed, pt easy to awake to verbal stimuli, aa5 pt reports he is sleepy. . 16:30 Reassessment: Patient is alert, oriented x 3, equal unlabored respirations, skin aa5 warm/dry/pink. Patient denies pain at this time. Vital Signs: 12:52 Weight 113.4 kg (R); Height 6 ft. 3 in. (190.50 cm) (R); Pain 0/10; aa5 12:55 BP 116 / 74; Pulse 76; Resp 16 S; Temp 98.0(TE); Pulse Ox 99% on R/A; Pain 0/10; aa5 13:15 BP 154 / 83; Pulse 114; Resp 20 S; Pulse Ox 100% on Non-rebreather mask; aa5 13:30 BP 133 / 82; Pulse 119; Resp 22 S; Pulse Ox 100% on Non-rebreather mask; aa5 13:40 BP 114 / 42; Pulse 96; Resp 20 S; Pulse Ox 100% on Non-rebreather mask; aa5 13:45 BP 115 / 53; Pulse 94; Resp 20 S; Pulse Ox 100% on Non-rebreather mask; aa5 13:50 BP 105 / 47; Pulse 90; Resp 24 S; Pulse Ox 100% on Non-rebreather mask; aa5 14:17 BP 103 / 46; Pulse 76; Resp 24; Pulse Ox 100% ; jb1 14:25 BP 92 / 46; Pulse 75; Resp 18 S; Pulse Ox 100% on R/A; aa5 14:40 BP 97 / 63; Pulse 75; Resp 16 S; Pulse Ox 98% on R/A; aa5 15:00 BP 96 / 50; Pulse 71; Resp 22 S; Pulse Ox 99% on R/A; aa5 15:15 BP 96 / 62; Pulse 70; Resp 20 S; Pulse Ox 97% on R/A; aa5 15:32 BP 108 / 64; Pulse 64; Resp 20 S; Pulse Ox 98% on R/A; aa5 16:28 BP 108 / 62; Pulse 66; Resp 18 S; Temp 98.3(TE); Pulse Ox 100% on R/A; Pain 0/10; aa5 12:52 Body Mass Index 31.25 (113.40 kg, 190.50 cm) aa5 14:25 QUARTER TRIMMER notified of decreased BP aa5 Tommy Coma Score: 12:53 Eye Response: spontaneous(4). Verbal Response: oriented(5). Motor Response: obeys aa5 commands(6). Total: 15. ED Course: 12:50 Patient arrived in ED. aa5 12:50 Arm band placed on Patient placed in an exam room, on a stretcher. aa5 12:50 Patient has correct armband on for positive identification. Placed in gown. Bed in low aa5 position. Call light in reach. Side rails up X2. 12:51 Krishna Blas, RAVINDER is PHCP. pm1 12:51 William Grayson MD is Attending Physician. pm1 12:52 Triage completed. aa5 12:52 Seizure precautions initiated. aa5 12:57 Kasie Nuñez, SIERRA is Primary Nurse. jl7 12:59 Clare Somers, SIERRA is Primary Nurse. aa5 13:13 Initial lab(s) drawn, by me, sent to lab. Inserted saline lock: 20 gauge in right aa5 antecubital area, using aseptic technique. Blood collected. 13:13 No provider procedures requiring assistance completed. aa5 13:39 CT Head C Spine In Process Unspecified. EDMS 13:39 CT completed. Patient tolerated procedure well. Patient moved to CT. mw3 15:50 Reymundo Segundo MD is Referral Physician. pm1 16:35 IV discontinued, intact, bleeding controlled, No redness/swelling at site. Pressure aa5 dressing applied. Administered Medications: 13:17 Drug: Ativan 2 mg Route: IVP; Site: right antecubital; aa5 13:20 Follow up: Response: No adverse reaction aa5 13:32 Drug: Ativan 1 mg Route: IVP; Site: right antecubital; aa5 13:34 Follow up: Response: No adverse reaction; No adverse reaction. Pt calm at this time aa5 13:48 Drug: Keppra 1000 mg Route: IV; Rate: calculated rate; Site: right antecubital; aa5 14:03 Follow up: Response: No adverse reaction; IV Status: Completed infusion aa5 13:53 CANCELLED (Physician Discretion): Ativan 1 mg IVP once aa5 14:31 Drug: NS 0.9% 1000 ml Route: IV; Rate: 1000 ml; Site: right antecubital; aa5 15:15 Follow up: IV Status: Completed infusion; IV Intake: 1000ml aa5 Intake: 15:15 IV: 1000ml; Total: 1000ml. aa5 Outcome: 15:50 Discharge ordered by . pm1 16:35 Discharged to home ambulatory, with significant other. aa5 16:35 Condition: stable 16:35 Discharge instructions given to patient, Instructed on discharge instructions, follow up and referral plans. medication usage, Demonstrated understanding of instructions, follow-up care, medications, Prescriptions given X 1. 16:42 Patient left the ED. aa5 Signatures: Dispatcher [employer] EDMS AminataMumtaz jb1 Clare Somers, RN RN aa5 Krishna Blas, QUARTER TRIMMER QUARTER TRIMMER pm1 Kasie Nuñez RN RN jl7 Adelina Dodson mw3 Corrections: (The following items were deleted from the chart) 12:53 12:50 Care prior to arrival: None. aa5 aa5 13:50 13:30 Reassessment: Pt uncooperative in CT, QUARTER TRIMMER notified, and Ativan 1mg IVP order aa5 received. . aa5 14:14 13:17 Reassessment: Seizure activity noted, lasting 15 seconds. Pt became diaphoretic. aa5 O2 via non-rebreather. Pt currently post-ictal. . aa5 14:24 12:50 Presenting complaint: EMS states: pt was found unresponsive by co-worker. EMS aa5 reports pt was altered and uncooperative upon scene arrival. Pt does not recall event. Pt reports he has not taken his Keppra for a few days. Pt currently A \\T\\ O x 4 aa5
[2018-05-07 16:52] VITALS: TEMP 98
[2018-05-07 17:05] VITALS: BP 108/64; O2SAT 98
--- NOTE | 2018-05-08 09:13 | EKG ---
Test Date: 2018-05-07 Test Time: 12:57:57 Email Marketing Processor: LISA MEASUREMENT RESULTS: Intervals: Rate: 69 DC: 156 QRSD: 94 QT: 390 QTc: 417 [place]: P: 24 DC: 156 QRS: 95 T: 11 INTERPRETIVE STATEMENTS: Normal sinus rhythm Rightward axis Borderline ECG Compared to ECG 03/11/2018 14:30:09 Right-axis deviation now present Prolonged QT interval no longer present Electronically Signed On 05-08-18 09:12:38 [employer]ER by Donavon Christian
== END 2018-05-07 16:42 | disposition home or self-care (01) ==
LOC: ER 12:44
DX: F55.8 Abuse of other non-psychoactive substances (principal); Z72.0 Tobacco use
CPT/HCPCS: 36415; 70450; 72125; 80053; 80320; 80329; 85025; 85610; 85730; 93005; 96361; 96374; 96375; 99284; J1953; J7030

== ENCOUNTER 2018-05-10 19:41 | Emergency (ER) | payer SELFPAY ==
--- OUTSIDE RECORDS SUMMARY | 2018-05-10 19:44 | XMS REPORT | Continuity of Care Document ---
[...] Number For Provider Date Date Visit Outpatient [id number] MARQUISE 10/27 Active [facility] [place] Outpatient [id number] MARQUISE 11/01 Active [facility] [place] Outpatient [id number] MARQUISE 11/29 [facility]2017 [place] Procedures Procedure Code Date Perfomer Comments Source
--- NOTE | 2018-05-10 22:29 | ER ---
Nurse's Notes [facility] Name: Jose Schultz Age: 27 yrs Sex: Male : 1990 Arrival Date: 05/10/2018 Time: 19:56 Bed 17 Private MD: Diagnosis: Dislocation of proximal interphalangeal joint of finger Presentation: 05/10 20:37 Presenting complaint: Patient states: Pt reports he was in martial arts class and was ea punching boards and injured his right hand, about an hour ago. Transition of care: patient was not received from another setting of care. Onset of symptoms. Risk Assessment: Do you want to hurt yourself or someone else? Patient reports no desire to harm self or others. Initial Sepsis Screen: Does the patient meet any 2 criteria? No. Patient's initial sepsis screen is negative. Does the patient have a suspected source of infection? No. Patient's initial sepsis screen is negative. Care prior to arrival: None. 20:37 Method Of Arrival: Ambulatory ea 20:37 Acuity: AUDELIA 4 ea Triage Assessment: 20:41 General: Appears in no apparent distress. Behavior is calm, cooperative, appropriate ea for age. Pain: Complains of pain in right hand. Musculoskeletal: Range of motion: limited in DIP of right little finger, PIP of right little finger and MCP of right little finger. 20:55 Injury Description: Bruise Deformity sustained to right hand. ls4 Historical: - Allergies: 20:41 No Known Allergies; ea - Home Meds: 20:41 Keppra Oral [Active]; ea - PMHx: 20:41 Seizures; atypical; ea - PSHx: 20:41 None; ea - Immunization history:: Adult Immunizations up to date. - Social history:: Smoking status: Patient uses tobacco products, smokes one-half pack cigarettes per day. - Ebola Screening: : No symptoms or risks identified at this time. Screenin:44 Abuse screen: Denies threats or abuse. Denies injuries from another. Nutritional ls4 screening: No deficits noted. Tuberculosis screening: No symptoms or risk factors identified. Fall Risk None identified. Assessment: 20:45 General: Appears in no apparent distress. Behavior is calm, cooperative. Pain: ls4 Complains of pain in right hand Pain currently is 7 out of 10 on a pain scale. Musculoskeletal: Circulation, motion, and sensation intact. Capillary refill < 3 seconds, Range of motion: intact in all extremities, Swelling present in right hand. 22:37 Reassessment: Patient and/or family updated on plan of care and expected duration. Pain ea level reassessed. Patient is alert, oriented x 3, equal unlabored respirations, skin warm/dry/pink. Discharge instructions given to patient, verbalized the understanding of isntruction Patient states feeling better. Patient states symptoms have improved. Vital Signs: 20:39 BP 150 / 93; Pulse 105; Resp 18; Temp 97.3; Pulse Ox 99% on R/A; Weight 113.4 kg; ea Height 6 ft. 3 in. (190.50 cm) (R); Pain 7/10; 22:38 BP 122 / 80; Pulse 82; Resp 18; Pulse Ox 99% on R/A; ea 20:39 Body Mass Index 31.25 (113.40 kg, 190.50 cm) ea ED Course: 19:56 Patient arrived in ED. ds1 20:39 Triage completed. ea 20:43 Suyapa Conde, RN is Primary Nurse. ls4 20:44 Patient has correct armband on for positive identification. Bed in low position. Call ls4 light in reach. Side rails up X 1. 20:44 No provider procedures requiring assistance completed. Patient did not have IV access ls4 during this emergency room visit. 20:46 ice applied. ls4 20:58 Seth Hong PA is PHCP. [facility] 20:58 Gregory Mclaughlin MD is Attending Physician. jmm 20:58 Arm band placed on. ls4 21:15 X-ray completed. Portable x-ray completed in exam room. Patient tolerated procedure ls3 well. 21:16 XRAY Hand RIGHT 3 View In Process Unspecified. EDMS 22:03 [place] tape MCP of right little finger and PIP of right little finger and DIP of right ls4 little finger. 22:23 Hand Right 3 View XRAY In Process Unspecified. EDMS Administered Medications: No medications were administered Outcome: 22:29 Discharge ordered by . sadaf 22:39 Discharged to home ambulatory, with significant other. ea 22:39 Condition: improved 22:39 Discharge instructions given to patient, Instructed on discharge instructions, follow up and referral plans. Demonstrated understanding of instructions, follow-up care. 22:39 Patient left the ED. ea Signatures: Dispatcher [employer] EDMS Seth Hong PA PA jmm [place], Demi ds1 Daphne Pearl RN Anish Whitmore ea ls3 Suyapa Conde RN RN ls4
--- NOTE | 2018-05-10 22:30 | EDPHYS ---
Physician Documentation [facility] Name: Jose Schultz Age: 27 yrs Sex: Male : 1990 Arrival Date: 05/10/2018 Time: 19:56 Bed 17 Private MD: ED Physician Gregory Mclaughlin HPI: 05/10 21:51 This 27 yrs old Male presents to ER via Ambulatory with complaints of Finger jmm Injury. 21:51 The patient or guardian reports injury, pain. Onset: The symptoms/episode jmm began/occurred acutely, today. Modifying factors: The symptoms are alleviated by nothing, the symptoms are aggravated by nothing. This is a 27 year old male with a history of seizures that presents to the ED with complaints of right fifth finger pain after attempting to break a board with an open hand. . Historical: - Allergies: 20:41 No Known Allergies; ea - Home Meds: 20:41 Keppra Oral [Active]; ea - PMHx: 20:41 Seizures; atypical; ea - PSHx: 20:41 None; ea - Immunization history:: Adult Immunizations up to date. - Social history:: Smoking status: Patient uses tobacco products, smokes one-half pack cigarettes per day. - Ebola Screening: : No symptoms or risks identified at this time. ROS: 21:51 Constitutional: Negative for fever, chills, and weight loss, Cardiovascular: Negative jmm for chest pain, palpitations, and edema, Respiratory: Negative for shortness of breath, cough, wheezing, and pleuritic chest pain. 21:51 MS/extremity: Positive for pain. 21:51 All other systems are negative. Exam: 21:51 Constitutional: This is a well developed, well nourished patient who is awake, alert, jmm and in no acute distress. Head/Face: atraumatic. Eyes: EOMI, no conjunctival erythema appreciated ENT: Moist Mucus Membranes Neck: Trachea midline, Supple Chest/axilla: Normal chest wall appearance and motion. Cardiovascular: Regular rate and rhythm. No edema appreciated Respiratory: Normal respirations, no respiratory distress appreciated Abdomen/GI: Non distended, soft Back: Normal ROM Skin: General appearance color normal 21:51 Musculoskeletal/extremity: deformity noted to the right 5th pip, < 2 sec distal cap refill, NVI. 21:51 Skin: Appearance: Color: normal in color. 21:51 Neuro: Orientation: is normal, Mentation: is normal, Memory: is normal. 21:51 Psych: Behavior/mood is pleasant, cooperative. Vital Signs: 20:39 BP 150 / 93; Pulse 105; Resp 18; Temp 97.3; Pulse Ox 99% on R/A; Weight 113.4 kg; ea Height 6 ft. 3 in. (190.50 cm) (R); Pain 7/10; 22:38 BP 122 / 80; Pulse 82; Resp 18; Pulse Ox 99% on R/A; ea 20:39 Body Mass Index 31.25 (113.40 kg, 190.50 cm) ea Procedures: 21:51 Splinting: Splint applied to right hand using finger splint, applied by tech. Patient [facility] tolerated well. 21:51 Reduction: of the PIP of right little finger, using traction, Immobilized with finger [facility] splint. Patient tolerated well. Post reduction film - reveals normal alignment. MDM: 21:51 Patient medically screened. [facility] 22:28 Data reviewed: vital signs, nurses notes. Counseling: I had a detailed discussion with [facility] the patient and/or guardian regarding: the historical points, exam findings, and any diagnostic results supporting the discharge/admit diagnosis, radiology results, the need for outpatient follow up, to return to the emergency department if symptoms worsen or persist or if there are any questions or concerns that arise at home. 22:28 Data reviewed: radiologic studies, plain films. [facility] 22:28 Data interpreted: Pulse oximetry: on room air is 99 %. Interpretation: normal. Response [facility] to treatment: the patient's symptoms have markedly improved after treatment, and as a result, I will discharge patient. 05/10 20:43 Order name: XRAY Hand RIGHT 3 View ea 05/10 21:56 Order name: Hand Right 3 View XRAY [facility] Administered Medications: No medications were administered Disposition: 05/11 05:09 Co-signature as Attending Physician, Gregory Mclaughlin MD Available for consultation at ps1 all times. . Disposition: 05/10/18 22:29 Discharged to Home. Impression: Dislocation of proximal interphalangeal joint of finger. - Condition is Stable. - Discharge Instructions: Finger Sprain, Adult. - Medication Reconciliation Form, Thank You Letter, Antibiotic Education, Prescription Opioid Use form. - Follow up: Private Physician; When: 2 - 3 days; Reason: Recheck today's complaints, Continuance of care, Re-evaluation by your physician. Signatures: Dispatcher [employer] Seth Gaitan PA PA jmm Antunez, Elena, SIERRA RN Gregory Brown MD MD ps1 Corrections: (The following items were deleted from the chart) 05/10 22:39 22:29 05/10/2018 22:29 Discharged to Home. Impression: Dislocation of proximal ea interphalangeal joint of finger. Condition is Stable. Forms are Medication Reconciliation Form, Thank You Letter, Antibiotic Education, Prescription Opioid Use. Follow up: Private Physician; When: 2 - 3 days; Reason: Recheck today's complaints, Continuance of care, Re-evaluation by your physician. sadaf
[2018-05-10 22:49] VITALS: TEMP 97.3; O2SAT 99
[2018-05-10 22:50] VITALS: BP 122/80
--- NOTE | 2018-05-11 08:11 | RAD REPORT ---
EXAM DESCRIPTION: RAD - Hand Right 3 View - 05/10/2018 9:16 pm CLINICAL HISTORY: Right hand trauma, fifth digit pain COMPARISON: None. FINDINGS: There is dorsal dislocation of the fifth middle phalanx at the PIP joint. Approximately 2 mm of overlap seen. There are no fracture fragment seen. No fracture or other acute bone finding. Delete select IMPRESSION: Dorsal dislocation of fifth middle phalanx. No fracture fragments seen.
--- NOTE | 2018-05-11 08:14 | RAD REPORT ---
EXAM DESCRIPTION: RAD - Hand Right 3 View - 05/10/2018 10:24 pm CLINICAL HISTORY: Post reduction of fifth middle phalanx dislocation COMPARISON: Right hand same date FINDINGS: The right fifth middle phalanx has been reduced to anatomic position. No fracture identifi ed. No other significant findings. No foreign body or other soft tissue abnormality. IMPRESSION: Reduction of the previously detailed right fifth middle phalanx dislocation. No fracture fragments seen.
== END 2018-05-10 22:39 | disposition home or self-care (01) ==
LOC: ER 19:41
PROC: 0RSWXZZ Reposition Right Finger Phalangeal Joint, External Approach (ICD-10-PCS; principal; 2018-05-10)
DX: S63.286A Dislocation of proximal interphalangeal joint of right little finger, initial encounter (principal); W22.09XA Striking against other stationary object, initial encounter; Y93.89 Activity, other specified; Y92.9 Unspecified place or not applicable; F17.210 Nicotine dependence, cigarettes, uncomplicated; G40.909 Epilepsy, unspecified, not intractable, without status epilepticus
CPT/HCPCS: 99283

== ENCOUNTER 2018-09-09 21:55 | Emergency (ER) | payer SELFPAY ==
--- OUTSIDE RECORDS SUMMARY | 2018-09-09 22:11 | XMS REPORT | Summary of Care ---
:1990 Author Organization [facility] Address [address] [place] [address]- Encounter HQ Encntr_alicatrachito(FIN) [id number] Date(s): 12/27/17 - 12/28/17 [facility] [address] [place] [address]- [phone] Vital Signs No data available for this section Problem List Condition Effective Dates Status Health Status Informant Seizures(Confirmed) Active Simple obesity(Confirmed) Active Allergies, Adverse Reactions, Alerts No Known Medication Allergies Medications No data available for this section Results No data available for this section Immunizations No data available for this section Procedures No data available for this section Social History Social History Type Response Smoking Status Current every day smoker; Type: Cigarettes; Exposure to Tobacco Smoke Unable to obtain; Cigarette Smoking Last 365 Days Yes; Reg Smoking Cessation Counseling No entered on: 10/27/17 Assessment and Plan No data available for this section
--- OUTSIDE RECORDS SUMMARY | 2018-09-09 22:11 | XMS REPORT | Continuity of Care Document ---
:1990 Author Organization [facility] Care Team Providers Name Role Phone [facility] Unavailable Unavailable Problems Problem Status Onset Classification Date Comments Source Date Reported Seizures Active Problem 07/17/2018 [facility] Simple Active Problem 07/17/2018 [facility] Medications No Data Provided for This Section Allergies, Adverse Reactions, Alerts Substance Category Reaction Severity Reaction Status Date Comments Source type Reported No Known Assertion Drug [facility] Medication allergy Neuro Allergies Immunizations No Data Provided for This Section Results No Data Provided for This Section Pathology Reports No Data Provided for This Section Diagnostic Reports No Data Provided for This Section Consultation Notes No Data Provided for This Section Discharge Summaries No Data Provided for This Section History and Physicals No Data Provided for This Section Vital Signs No Data Provided for This Section Encounters Location Location Encounter Encounter Reason Attending ADM DC Status Source Details Type Number For Provider Date Date Visit Outpatient [id number] MARQUISE 10/27 Active [facility] [place] [facility] [id number] MARQUISE 11/01 Active [facility]2017 [place] [facility] [id number] MARQUISE 11/29 [facility]2017 [place] [facility] [id number] 12/27 12/29 [facility] /2017 Neuro [place] Records Procedures No Data Provided for This Section Assessment and Plan No Data Provided for This Section Plan of Care No Data Provided for This Section Social History Social History Date Source Social History TypeResponse 10/27/2017 [facility] Neuro Smoking Status Current every day smoker; Type: Cigarettes; Exposure to Tobacco Smoke Unable to obtain; Cigarette Smoking Last 365 Days Yes; Reg Smoking Cessation Counseling No entered on: 10/27/17 Family History No Data Provided for This Section Advance Directives No Data Provided for This Section Functional Status No Data Provided for This Section
[2018-09-09] MEDS ORDERED: NA CHLORIDE 0.9% 100 ML IV ONE (22:35)
[2018-09-09] MEDS ORDERED: LEVETIRACETAM 500 MG/5 ML VIAL IV ONE (22:35)
[2018-09-09] MEDS ORDERED: DIAZEPAM PR ONE (22:48)
[2018-09-09 23:06] LABS: Absolute Lymphocytes (CBC) 4.6 K/uL (0.7-4.9); Basophils % 0.3 % (0-1.3); Eosinophils % 0.8 % (0-4.4); Hematocrit 49.6 % (39.6-49.0); Lymphocytes % 28.5 % (15.3-44.8); MPV 8.4 fL (7.6-11.3); Monocytes % 5.3 % (3.3-12.3)
[2018-09-09 23:20] LABS: Potassium 3.7 mmol/L (3.5-5.1)
[2018-09-09] MEDS ORDERED: NA CHLORIDE 0.9% 2,000 ML ONE (23:51)
--- NOTE | 2018-09-10 01:54 | EDPHYS ---
Physician Documentation [facility] Name: Jose Schultz Age: 28 yrs Sex: Male : 1990 Arrival Date: 09/09/2018 Time: 22:01 Bed 14 Private MD: ED Physician Elbert Anthony HPI: 09/09 23:56 This 28 yrs old Male presents to ER via EMS with complaints of Seizure. snw 23:56 The patient presents after having a single isolated seizure, the episode(s) was snw witnessed, by co-worker(s). Character of seizure(s): Loss of consciousness: the patient experienced loss of consciousness, Motor activity: generalized, Incontinence: none, Apnea: the patient did not experience apnea, Circulation: the patient did not experience evidence of pulse disturbance. Seizure onset: today. Context: the seizure(s) was witnessed, by co-worker(s), occurred at work, occurred while the patient was standing, Contributing factors: suspected or documented drug use, in the past, awaiting UDS. Seizure Hx: Seizure medications: Keppra. Associated injury: Head/face: abrasion, contusion. EMS care:. EMS care: none. Current symptoms: + one seizure in ED. The patient has experienced similar episodes in the past, multiple times. It is unknown whether or not the patient has recently seen a physician. Historical: - Allergies: 21:55 No Known Allergies; cc3 - Home Meds: 21:55 Keppra Oral [Active]; Tramadol Oral [Active]; cc3 - PMHx: 21:55 Seizures; atypical; cc3 - Immunization history:: Adult Immunizations up to date. - Social history:: Smoking status: Patient uses tobacco products, smokes one-half pack cigarettes per day. - Immunization history: Last tetanus immunization: unknown. - Ebola Screening: : No symptoms or risks identified at this time. ROS: 23:55 Constitutional: Positive for seizure. snw 23:58 Eyes: Negative for injury, pain, redness, and discharge, ENT: Negative for injury, snw pain, and discharge, Neck: Negative for injury, pain, and swelling, Cardiovascular: Negative for chest pain, palpitations, and edema, Respiratory: Negative for shortness of breath, cough, wheezing, and pleuritic chest pain, Abdomen/GI: Negative for abdominal pain, nausea, vomiting, diarrhea, and constipation, Back: Negative for injury and pain, : Negative for injury, bleeding, discharge, and swelling, MS/Extremity: Negative for injury and deformity, Skin: Negative for injury, rash, and discoloration, Neuro: Negative for headache, weakness, numbness, tingling, and seizure, Psych: Negative for depression, anxiety, suicide ideation, homicidal ideation, and hallucinations. Exam: 22:37 Neuro: seizure activity, grand mal type is displayed, on my arrival to room, + suction snw and pt in side lying position, + diastat to room. 09/10 01:55 Constitutional: This is a well developed, well nourished patient who is awake, alert, snw and in no acute distress. Head/Face: Normocephalic, small contusion to forehead at hairline, nasal bridge Eyes: Pupils equal round and reactive to light, extra-ocular motions intact. Lids and lashes normal. Conjunctiva and sclera are non-icteric and not injected. Cornea within normal limits. Periorbital areas with no swelling, redness, or edema. ENT: Nares patent. No nasal discharge, no septal abnormalities noted. Tympanic membranes are normal and external auditory canals are clear. Oropharynx with no redness, swelling, or masses, exudates, or evidence of obstruction, uvula midline. Mucous membranes moist. Neck: Trachea midline, no thyromegaly or masses palpated, and no cervical lymphadenopathy. Supple, full range of motion without nuchal rigidity, or vertebral point tenderness. No Meningismus. Chest/axilla: Normal chest wall appearance and motion. Nontender with no deformity. No lesions are appreciated. Cardiovascular: Regular rate and rhythm with a normal S1 and S2. No gallops, murmurs, or rubs. Normal PMI, no JVD. No pulse deficits. Respiratory: Lungs have equal breath sounds bilaterally, clear to auscultation and percussion. No rales, rhonchi or wheezes noted. No increased work of breathing, no retractions or nasal flaring. Abdomen/GI: Soft, non-tender, with normal bowel sounds. No distension or tympany. No guarding or rebound. No evidence of tenderness throughout. Back: No spinal tenderness. No costovertebral tenderness. Full range of motion. Skin: Warm, dry with normal turgor. Normal color with no rashes, no lesions, and no evidence of cellulitis. MS/ Extremity: Pulses equal, no cyanosis. Neurovascular intact. Full, normal range of motion. Neuro: Awake and alert, GCS 15, oriented to person, place, time, and situation. Cranial nerves II-XII grossly intact. Motor strength 5/5 in all extremities. Sensory grossly intact. Cerebellar exam normal. Normal gait. Psych: Awake, alert, with orientation to person, place and time. Behavior, mood, and affect are within normal limits. Vital Signs: 09/09 21:55 BP 132 / 75; Pulse 102; Resp 20 S; Pulse Ox 95% on R/A; Weight 104.33 kg (R); Height 6 cc3 ft. 3 in. (190.50 cm) (R); Pain 3/10; 23:15 BP 119 / 60; Pulse 77; Resp 16; Pulse Ox 94% on R/A; jb4 09/10 00:00 BP 95 / 60; Pulse 70; Resp 16; Pulse Ox 97% on R/A; jb4 01:00 BP 102 / 63; Pulse 57; Resp 16; Pulse Ox 96% on R/A; jb4 01:45 BP 105 / 75; Pulse 59; Resp 16; Pulse Ox 97% on R/A; jb4 09/09 21:55 Body Mass Index 28.75 (104.33 kg, 190.50 cm) cc3 Tommy Coma Score: 09/09 21:55 Eye Response: spontaneous(4). Verbal Response: confused(4). Motor Response: obeys cc3 commands(6). Total: 14. 22:00 Eye Response: spontaneous(4). Verbal Response: confused(4). Motor Response: obeys fc commands(6). Total: 14. 23:15 Eye Response: to voice(3). Verbal Response: confused(4). Motor Response: obeys jb4 commands(6). Total: 13. 09/10 00:00 Eye Response: to voice(3). Verbal Response: confused(4). Motor Response: obeys jb4 commands(6). Total: 13. 01:00 Eye Response: spontaneous(4). Verbal Response: oriented(5). Motor Response: obeys jb4 commands(6). Total: 15. 01:45 Eye Response: spontaneous(4). Verbal Response: oriented(5). Motor Response: obeys jb4 commands(6). Total: 15. Trauma Score (Adult): 09/09 22:00 Eye Response: spontaneous(1); Verbal Response: confused(1); Motor Response: obeys fc commands(2); Systolic BP: > 89 mm Hg(4); Respiratory Rate: 10 to 29 per min(4); Tommy Score: 14; Trauma Score: 12 23:15 Eye Response: to voice(0); Verbal Response: confused(1); Motor Response: obeys jb4 commands(2); Systolic BP: > 89 mm Hg(4); Respiratory Rate: 10 to 29 per min(4); Isabella Score: 13; Trauma Score: 11 09/10 00:00 Eye Response: to voice(0); Verbal Response: confused(1); Motor Response: obeys jb4 commands(2); Systolic BP: > 89 mm Hg(4); Respiratory Rate: 10 to 29 per min(4); Tommy Score: 13; Trauma Score: 11 01:00 Eye Response: spontaneous(1); Verbal Response: oriented(1); Motor Response: obeys jb4 commands(2); Systolic BP: > 89 mm Hg(4); Respiratory Rate: 10 to 29 per min(4); Isabella Score: 15; Trauma Score: 12 01:45 Eye Response: spontaneous(1); Verbal Response: oriented(1); Motor Response: obeys jb4 commands(2); Systolic BP: > 89 mm Hg(4); Respiratory Rate: 10 to 29 per min(4); Isabella Score: 15; Trauma Score: 12 MDM: 09/09 22:05 Patient medically screened. snw 09/10 01:54 Data reviewed: vital signs, nurses notes. Data interpreted: Pulse oximetry: on room air snw is 95 %. Interpretation: acceptable. Counseling: I had a detailed discussion with the patient and/or guardian regarding: the historical points, exam findings, and any diagnostic results supporting the discharge/admit diagnosis, lab results, the need for outpatient follow up, to return to the emergency department if symptoms worsen or persist or if there are any questions or concerns that arise at home. Response to treatment: the patient's symptoms have markedly improved after treatment. Special discussion: Based on the patient's history, exam and DX evaluation, there is no indication for emergent intervention or inpatient [place]. It is understood by the patient/guardian that if the SXs persist or worsen they need to return immediately for re-evaluation. Based on the history and exam findings, there is no indication for further emergent testing or inpatient evaluation. I discussed with the patient/guardian the need to see the neurologist for further evaluation of the symptoms. I discussed with the patient/guardian the need to see the primary care provider for further evaluation of the symptoms. 09/09 22:06 Order name: UDS; Complete Time: 02:10 snw 09/09 22:07 Order name: CBC with Diff; Complete Time: 23:11 snw 09/09 22:07 Order name: Chem 7; Complete Time: 23:20 snw 09/09 23:07 Order name: Creatine Phosphokinase; Complete Time: 23:20 EDMS 09/10 01:34 Order name: Urine Dipstick--Ancillary (enter results) ri 09/09 22:06 Order name: Seizure Precautions; Complete Time: 22:17 snw 09/09 22:34 Order name: Suction; Complete Time: 00:15 snw Administered Medications: 09/09 22:40 Drug: Diastat 5 mg Route: [place]; [facility] 23:10 Follow up: Response: No adverse reaction; Marked relief of symptoms jb4 23:04 Drug: Keppra 1000 mg Route: IV; Rate: calculated rate; Site: right antecubital; 4 23:34 Follow up: Response: No adverse reaction; IV Status: Completed infusion; IV Intake: jb4 100ml 23:40 Drug: NS 0.9% 1000 ml Route: IV; Rate: 125 ml/hr; Site: right antecubital; jb4 09/10 01:40 Follow up: Response: No adverse reaction; IV Status: Order to discontinue infusion; IV jb4 Intake: 500ml 09/09 23:40 Drug: NS 0.9% 1000 ml Route: IV; Rate: 1 bolus; Site: right antecubital; jb4 09/10 00:20 Follow up: Response: No adverse reaction; IV Status: Completed infusion; IV Intake: jb4 1000ml Disposition: : Co-signature as Attending Physician, Elbert Anthony MD. pkl Disposition: 09/10/18 01:52 Discharged to Home. Impression: Epilepsy and recurrent seizures, Legal Marijuana Use. - Condition is Stable. - Discharge Instructions: Head Injury, Adult, Seizure, Adult, Rehydration, Adult, What You Need To Know About Illegal Drug Use and Dependence, Youth. - Prescriptions for Keppra 750 mg Oral Tablet - take 1 tablet by ORAL route every 12 hours; 20 tablet. - Work release form, Medication Reconciliation Form, Thank You Letter, Antibiotic Education, Prescription Opioid Use, SBAR form form. - Follow up: Emergency Department; When: As needed; Reason: Worsening of condition. Follow up: Private Physician; When: 2 - 3 days; Reason: Recheck today's complaints, Continuance of care, Re-evaluation by your physician. Follow up: Reymundo Segundo MD; When: 2 - 3 days; Reason: Recheck today's complaints, Continuance of care, Re-evaluation by your physician. Signatures: Dispatcher [employer] [facility] Elbert Anthony MD MD pkFatou Leyva, REAL ESTATE CLERK-C REAL ESTATE CLERK-Csnw Concetta Florez RN RN Benny Martínez RN RN jb4 Helene Coleman cc3 Corrections: (The following items were deleted from the chart) 09/09 23:07 22:47 CREATINE PHOSPHOKINASE+[id number].LAB.BRZ ordered. [facility] 09/10 02:30 01:52 09/10/2018 01:52 Discharged to Home. Impression: Epilepsy and recurrent seizures; jb4 Legal Marijuana Use. Condition is Stable. Forms are SBAR form, Medication Reconciliation Form, Thank You Letter, Antibiotic Education, Prescription Opioid Use. Follow up: Emergency Department; When: As needed; Reason: Worsening of condition. Follow up: Private Physician; When: 2 - 3 days; Reason: Recheck today's complaints, Continuance of care, Re-evaluation by your physician. Follow up: Reymundo Segundo; When: 2 - 3 days; Reason: Recheck today's complaints, Continuance of care, Re-evaluation by your physician. snw
--- NOTE | 2018-09-10 01:54 | ER ---
Nurse's Notes [facility] Name: Jose Schultz Age: 28 yrs Sex: Male : 1990 Arrival Date: 09/09/2018 Time: 22:01 Bed 14 Private MD: Diagnosis: Epilepsy and recurrent seizures;Legal Marijuana Use Presentation: 09/09 21:55 Presenting complaint: EMS states: "we were toned for patient had seizure, fell and hit cc3 his face on cement and had loss of consciousness while at work. Patient answers questions but a little bit confused" Patient sustained contusions to his forehead and nasal bridge. Transition of care: patient was not received from another setting of care. Onset of symptoms was September 09, 2018. Risk Assessment: Do you want to hurt yourself or someone else? Patient reports no desire to harm self or others. Initial Sepsis Screen: Does the patient meet any 2 criteria? No. Patient's initial sepsis screen is negative. Does the patient have a suspected source of infection? No. Patient's initial sepsis screen is negative. Care prior to arrival: None. 21:55 Method Of Arrival: EMS: [facility] cc3 21:55 Acuity: AUDELIA 2 cc3 22:00 Mechanism of Injury: Fall from standing position. Trauma event details: Injury occurred fc in the [facility], Injury occurred: in a public building. Injury occurred: September 09, 2018. Triage Assessment: 21:55 General: Appears in no apparent distress. uncomfortable, Behavior is calm, cooperative, cc3 appropriate for age. Pain: Complains of pain in head - forehead Pain currently is 3 out of 10 on a pain scale. Neuro: Level of Consciousness is awake, obeys commands, confused. Trauma Activation: Alert Physician: ED Physician; Name: Raj; Notified At: 22:00; Arrived At: 22:00 Physician: General Surgeon; Name: ; Notified At: 22:00; Arrived At: Physician: Radiology; Name: Anish Sahu; Notified At: 22:00; Arrived At: 22:01 Physician: Respiratory; Name: Hari; Notified At: 22:00; Arrived At: 22:03 Physician: Lab; Name: ; Notified At: 22:00; Arrived At: Historical: - Allergies: 21:55 No Known Allergies; cc3 - Home Meds: 21:55 Keppra Oral [Active]; Tramadol Oral [Active]; cc3 - PMHx: 21:55 Seizures; atypical; cc3 - Immunization history:: Adult Immunizations up to date. - Social history:: Smoking status: Patient uses tobacco products, smokes one-half pack cigarettes per day. - Immunization history: Last tetanus immunization: unknown. - Ebola Screening: : No symptoms or risks identified at this time. Screenin:00 Abuse screen: Denies threats or abuse. Tuberculosis screening: No symptoms or risk fc factors identified. 22:00 Nutritional screening: No deficits noted. Fall Risk IV access (20 points). Mental jb4 Status- Overestimates/Forgets Limitations (15 pts.). Total Harper Fall Scale indicates Low Risk Score (25-44 pts). Fall prevention measures have been instituted. Side Rails Up X 2 Placed close to Nursing Station Frequent Obs/Assesments occuring Family Present and informed to notify staff if they need to leave bedside As available Patient and Family Educated on Fall Prevention Program and strategies. Primary Survey: 21:55 NO uncontrolled hemorrhage observed. A: The patient is alert. Airway: patent, No cc3 supplemental oxygen in use on arrival. Oral cavity: clear, gag reflex present, Trachea midline. Breathing/Chest: Respiratory pattern: regular, Respiratory effort: spontaneous, unlabored, Chest inspection: symmetrical rise and fall of the chest. Circulation: Heart tones present. Skin color: pink, Skin temperature: warm, dry. Disability Alert. Exposure/Environment: All clothing and personal items were removed. Forensic evidence collection is not deemed to be indicated at this time. Items placed in patient belonging bag. There is no evidence of uncontrolled external bleeding. Obvious injury(ies) are noted at this time: contusions to forehead and nasal bridge. 09/10 00:00 Reassessment Breathing/Chest Respiratory pattern Regular Respiratory effort Spontaneous jb4 Unlabored. Assessment: 09/09 22:15 General: Appears in no apparent distress. comfortable, Behavior is calm, cooperative, jb4 appropriate for age. Pain: Denies pain. Neuro: Level of Consciousness is awake, alert, obeys commands, Oriented to person, place, time, situation. Cardiovascular: Patient's skin is warm and dry. Respiratory: Airway is patent Respiratory effort is even, unlabored, Respiratory pattern is regular, symmetrical. GI: No signs and/or symptoms were reported involving the gastrointestinal system. : No signs and/or symptoms were reported regarding the genitourinary system. EENT: No signs and/or symptoms were reported regarding the EENT system. Derm: Skin is intact, Skin is pink, warm \\T\\ dry. Musculoskeletal: Circulation, motion, and sensation intact. 22:35 Reassessment: Pt is seizing provider notified, suction in place, placed on non jb4 re-breather. See MAR for orders. 23:00 Reassessment: Patient appears in no apparent distress at this time. Patient and/or jb4 family updated on plan of care and expected duration. Pain level reassessed. Pt is agitated and confused after seizure. respirations even and unlabored, no s/s of distress or pain noted at this time. Pt is confused and agitated. 09/10 00:00 Reassessment: Patient appears in no apparent distress at this time. No changes from jb4 previously documented assessment. Patient and/or family updated on plan of care and expected duration. Pain level reassessed. 01:00 Reassessment: Patient appears in no apparent distress at this time. Patient and/or jb4 family updated on plan of care and expected duration. Pain level reassessed. Patient is alert, oriented x 3, equal unlabored respirations, skin warm/dry/pink. Patient states feeling better. Patient states symptoms have improved. 02:22 Reassessment: Patient appears in no apparent distress at this time. Patient and/or jb4 family updated on plan of care and expected duration. Pain level reassessed. Patient is alert, oriented x 3, equal unlabored respirations, skin warm/dry/pink. Ambulated out of ED with significant other. verbalized understanding of d/c and follow up instructions. denies questions or concerns. Patient states feeling better. Patient states symptoms have improved. Vital Signs: 09/09 21:55 BP 132 / 75; Pulse 102; Resp 20 S; Pulse Ox 95% on R/A; Weight 104.33 kg (R); Height 6 cc3 ft. 3 in. (190.50 cm) (R); Pain 3/10; 23:15 BP 119 / 60; Pulse 77; Resp 16; Pulse Ox 94% on R/A; jb4 09/10 00:00 BP 95 / 60; Pulse 70; Resp 16; Pulse Ox 97% on R/A; jb4 01:00 BP 102 / 63; Pulse 57; Resp 16; Pulse Ox 96% on R/A; jb4 01:45 BP 105 / 75; Pulse 59; Resp 16; Pulse Ox 97% on R/A; jb4 09/09 21:55 Body Mass Index 28.75 (104.33 kg, 190.50 cm) cc3 [place] Coma Score: 09/09 21:55 Eye Response: spontaneous(4). Verbal Response: confused(4). Motor Response: obeys cc3 commands(6). Total: 14. 22:00 Eye Response: spontaneous(4). Verbal Response: confused(4). Motor Response: obeys fc commands(6). Total: 14. 23:15 Eye Response: to voice(3). Verbal Response: confused(4). Motor Response: obeys jb4 commands(6). Total: 13. 09/10 00:00 Eye Response: to voice(3). Verbal Response: confused(4). Motor Response: obeys jb4 commands(6). Total: 13. 01:00 Eye Response: spontaneous(4). Verbal Response: oriented(5). Motor Response: obeys jb4 commands(6). Total: 15. 01:45 Eye Response: spontaneous(4). Verbal Response: oriented(5). Motor Response: obeys jb4 commands(6). Total: 15. Trauma Score (Adult): 09/09 22:00 Eye Response: spontaneous(1); Verbal Response: confused(1); Motor Response: obeys fc commands(2); Systolic BP: > 89 mm Hg(4); Respiratory Rate: 10 to 29 per min(4); Tommy Score: 14; Trauma Score: 12 23:15 Eye Response: to voice(0); Verbal Response: confused(1); Motor Response: obeys jb4 commands(2); Systolic BP: > 89 mm Hg(4); Respiratory Rate: 10 to 29 per min(4); Tommy Score: 13; Trauma Score: 11 09/10 00:00 Eye Response: to voice(0); Verbal Response: confused(1); Motor Response: obeys jb4 commands(2); Systolic BP: > 89 mm Hg(4); Respiratory Rate: 10 to 29 per min(4); Tommy Score: 13; Trauma Score: 11 01:00 Eye Response: spontaneous(1); Verbal Response: oriented(1); Motor Response: obeys jb4 commands(2); Systolic BP: > 89 mm Hg(4); Respiratory Rate: 10 to 29 per min(4); Tommy Score: 15; Trauma Score: 12 01:45 Eye Response: spontaneous(1); Verbal Response: oriented(1); Motor Response: obeys jb4 commands(2); Systolic BP: > 89 mm Hg(4); Respiratory Rate: 10 to 29 per min(4); Tommy Score: 15; Trauma Score: 12 ED Course: 09/09 21:55 Arm band placed on Patient placed in an exam room, on a stretcher. fc 22:00 Patient has correct armband on for positive identification. Placed in gown. Bed in low fc position. Call light in reach. Side rails up X2. Seizure precautions initiated. 22:00 Patient maintains SpO2 saturation greater than 95% on room air. Thermoregulation: warm fc blanket given to patient. 22:01 Patient arrived in ED. fc 22:05 [facility] snw 22:05 Elbert Anthony MD is Attending Physician. snw 22:16 Benny Martínez, SIERRA is Primary Nurse. jb4 22:18 Triage completed. cc3 09/10 01:51 Reymundo Segundo MD is Referral Physician. snw 02:26 No provider procedures requiring assistance completed. IV discontinued, intact, jb4 bleeding controlled, No redness/swelling at site. Pressure dressing applied. Administered Medications: 09/09 22:40 Drug: Diastat 5 mg Route: MO; jb4 23:10 Follow up: Response: No adverse reaction; Marked relief of symptoms jb4 23:04 Drug: Keppra 1000 mg Route: IV; Rate: calculated rate; Site: right antecubital; jb4 23:34 Follow up: Response: No adverse reaction; IV Status: Completed infusion; IV Intake: jb4 100ml 23:40 Drug: NS 0.9% 1000 ml Route: IV; Rate: 125 ml/hr; Site: right antecubital; jb4 09/10 01:40 Follow up: Response: No adverse reaction; IV Status: Order to discontinue infusion; IV jb4 Intake: 500ml 09/09 23:40 Drug: NS 0.9% 1000 ml Route: IV; Rate: 1 bolus; Site: right antecubital; jb4 09/10 00:20 Follow up: Response: No adverse reaction; IV Status: Completed infusion; IV Intake: jb4 1000ml Intake: 09/09 23:34 IV: 100ml; Total: 100ml. jb4 09/10 00:20 IV: 1000ml; Total: 1100ml. jb4 01:40 IV: 500ml; Total: 1600ml. jb4 02:27 IV: 2ml (IV Fluid); Total: 1602ml. jb4 Output: 02:27 Urine: 800ml (Voided); Total: 800ml. jb4 Outcome: 01:52 Discharge ordered by MD. snw 02:26 Discharged to home ambulatory, with significant other. jb4 02:26 Condition: stable 02:26 Discharge instructions given to patient, significant other, Instructed on discharge instructions, follow up and referral plans. medication usage, Demonstrated understanding of instructions, follow-up care, medications, Prescriptions given X 1. 02:27 Patient's length of stay in the Emergency Department was greater than 2 hours. Pt jb4 discharged home.Patient's length of stay extended due to 02:30 Patient left the ED. jb4 Signatures: Fatou Mendez, LYNDA-C CELL PHONE REPAIR TECHNICIAN-Gregoriow Concetta Florez RN RN fc Bryson, James, RN RN jb4 Helene Coleman cc3 Corrections: (The following items were deleted from the chart) 09/09 22:19 21:55 Presenting complaint: EMS states: "we were toned for patient had seizure, fell cc3 and hit his face on cement and had loss of consciousnes while at work" cc3 22:22 21:55 Presenting complaint: EMS states: "we were toned for patient had seizure, fell cc3 and hit his face on cement and had loss of consciousness while at work. Patient answers questions but a little bit confused" cc3
[2018-09-10 02:03] LABS: Barbiturates NEGATIVE (NEGATIVE); Benzodiazepines NEGATIVE (NEGATIVE); Cocaine NEGATIVE (NEGATIVE); METHAMPHETAM NEGATIVE (NEGATIVE); Methadone NEGATIVE (NEGATIVE); Opiates NEGATIVE (NEGATIVE); Phencyclidine NEGATIVE (NEGATIVE); THC Cannibis POSITIVE (NEGATIVE)
[2018-09-10 02:51] VITALS: BP 105/75; O2SAT 97
[2018-09-10 04:24] LABS: Urine Blood NEGATIVE (NEG); Urine Glucose NEGATIVE (NEG); Urine Protein 1+ (NEG); Urine Specific Gravity 1.025 (1.005-1.030); Urine pH 5.5 (5.0-7.0)
== END 2018-09-10 02:30 | disposition home or self-care (01) ==
LOC: ER 21:55
DX: G40.909 Epilepsy, unspecified, not intractable, without status epilepticus (principal); F12.90 Cannabis use, unspecified, uncomplicated; F17.210 Nicotine dependence, cigarettes, uncomplicated
CPT/HCPCS: 36415; 80048; 80307; 81003; 82550; 85025; 96361; 96365; 99284; J1953; J7030

== ENCOUNTER 2021-09-26 10:39 | Emergency (ER) | payer SELFPAY ==
--- OUTSIDE RECORDS SUMMARY | 2021-09-26 10:41 | XMS REPORT | Continuity of Care Document ---
:1990 Author Organization [facility] t Address [address] [place] [address] Care Team Providers Name Role Phone Mable PEPE Attending Clinician Unavailable Problems This patient has no known problems. Allergies, Adverse Reactions, Alerts This patient has no known allergies or adverse reactions. Medications This patient has no known medications. Procedures This patient has no known procedures. Encounters Start End Encounter Admission Attending Care Care Encounter Source Date/Time Date/Time Type Type Clinicians Facility Department ID 2020-03-18 2020-03-18 Emergency E EZ PEPE [facility] [id number] [facility] 10:28:00 13:17:00 Results This patient has no known results.
--- NOTE | 2021-09-26 11:02 | RAD REPORT ---
EXAM DESCRIPTION: CT - [id number] - 09/26/2021 10:51 am CLINICAL HISTORY: Trauma, head and neck injury. fall, head injury, AMS COMPARISON: Head C Spine Mpr Wo Con dated 05/07/2018 TECHNIQUE: Axial 5 mm thick images of the head were obtained. Axial 2 mm thick images of the cervical spine were obtained with sagittal and coronal reconstruction images generated and reviewed. All CT scans are performed using dose optimization technique as appropriate and may include automated exposure control or mA/KV adjustment according to patient size. FINDINGS: CT HEAD WITHOUT CONTRAST: No acute hemorrhage, hydrocephalus or extra-axial collection is identified.No areas of brain edema or midline shift. The paranasal sinuses and mastoids are clear.The calvarium is intact. CT CERVICAL SPINE WITHOUT CONTRAST: No fracture or subluxation.No prevertebral soft tissues swelling is identified. Curvature of the neck may be due to positioning. IMPRESSION: No acute intracranial or cervical spine findings.
--- NOTE | 2021-09-26 11:15 | ER ---
Nurse's Notes [facility] Name: Jose Schultz Age: 31 yrs Sex: Male : 1990 Arrival Date: 09/26/2021 Time: 10:39 Bed 3 Private MD: Diagnosis: Epileptic seizures related to external causes, not intractable;Medication non-compliance;Polysubstance abuse Presentation: 09/26 10:40 Chief complaint: EMS states: TONED OUT FOR SEIZURE, COMBATIVE ON SCENE. Coronavirus bp screen: At this time, the client does not indicate any symptoms associated with coronavirus-19. Ebola Screen: No symptoms or risks identified at this time. Initial Sepsis Screen: Does the patient meet any 2 criteria? No. Patient's initial sepsis screen is negative. Does the patient have a suspected source of infection? No. Patient's initial sepsis screen is negative. Risk Assessment: Do you want to hurt yourself or someone else? Patient reports no desire to harm self or others. Note PT HAS H/O COMBATIVE BEHAVIOR WITH HEALTHCARE STAFF, ATTEMPTING TO ELOPE ON ARRIVAL. PT VERBALLY REDIRECTED TO ALLOW CT. PT AO4, NO POST-ICTAL PERIOD NOTED. PER EMS, SIGNIFICANT OTHER ON SCENE REPORT DRUG AND ALCOHOL USE. Onset of symptoms is unknown. 10:40 Method Of Arrival: EMS: [facility] bp 10:40 Acuity: AUDELIA 2 bp 10:40 Care prior to arrival: Glucose check: 106. bp Triage Assessment: 10:43 General: Appears in no apparent distress. uncomfortable, Behavior is appropriate for bp age, agitated, uncooperative. Pain: Denies pain. EENT: No deficits noted. Neuro: Level of Consciousness is awake, Oriented to Appropriate for age. Cardiovascular: Rhythm is sinus tachycardia. Respiratory: No deficits noted. GI: No signs and/or symptoms were reported involving the gastrointestinal system. : No signs and/or symptoms were reported regarding the genitourinary system. Derm: No deficits noted. Musculoskeletal: No deficits noted. Injury Description: Bruise sustained to scalp. Historical: - Allergies: 10:43 No Known Allergies; bp - Home Meds: 10:43 Keppra Oral [Active]; bp - PMHx: 10:43 Seizures; atypical; bp - Immunization history:: Adult Immunizations unknown. - Social history:: Smoking status: unknown. Screenin:45 Abuse screen: Denies threats or abuse. Denies injuries from another. Nutritional bp screening: No deficits noted. Tuberculosis screening: No symptoms or risk factors identified. Fall Risk None identified. Assessment: 10:45 General: SEE TRIAGE NOTE. bp 10:53 Reassessment: PT REFUSING PIV. PT RETURNED FROM CT. bp 11:30 Reassessment: Patient is alert, oriented x 3, equal unlabored respirations, skin jd3 warm/dry/pink. pt refusing to take discharge paperwork or sign. pt refusing to get up out of bed to meet his ride waiting in the lobby. charge nurse notified. 11:30 Reassessment: charge nurse at bedside. pt refusing to take discharge paperwork. even jd3 and steady gait upon discharge. Vital Signs: 10:54 BP 136 / 71; Pulse 73; Resp 18; Pulse Ox 98% ; bp ED Course: 10:39 Patient arrived in ED. bp 10:40 Lala Mcghee is Attending Physician. sd2 10:43 Triage completed. bp 10:44 Arm band placed on. bp 10:45 Patient has correct armband on for positive identification. Bed in low position. Call bp light in reach. Side rails up X2. 10:53 CT Head C Spine In Process Unspecified. EDMS 10:53 Jayden Ramirez, RN is Primary Nurse. bp 10:58 water given to patient after getting approval from provider. jd3 11:33 No provider procedures requiring assistance completed. Patient did not have IV access jd3 during this emergency room visit. Administered Medications: No medications were administered Medication: 10:45 VIS not applicable for this client. bp Outcome: 11:14 Discharge ordered by . sd2 11:33 Discharged to home with friend. jd3 11:33 Condition: stable 11:33 Discharge instructions given to patient, Instructed on discharge instructions, follow up and referral plans. Demonstrated understanding of instructions, follow-up care. 11:34 Patient left the ED. jd3 Signatures: Dispatcher [employer] EDLuther John RN RN Jayden Wan, RN RN bp Lala Mcghee sd2 Corrections: (The following items were deleted from the chart) 11:02 10:58 water given to patient jd3 jd3
--- NOTE | 2021-09-26 11:15 | EDPHYS ---
Physician Documentation [facility] Name: Jose Schultz Age: 31 yrs Sex: Male : 1990 Arrival Date: 09/26/2021 Time: 10:39 Bed 3 Private MD: ED Physician Lala Mcghee HPI: 09/26 10:48 This 31 yrs old Male presents to ER via EMS with complaints of Altered mental sd2 status. 10:48 31 yo M with hx of seizures presents via EMS with CC of AMS. They report patient was sd2 stumbling around outside his home and reportedly had a seizure. He then became combative with officers requiring restraints and 2mg Ativan IM given prior to arrival. Pt reports he is on Keppra for his seizures and does smoke marijuana and use alcohol occasionally. However, pt will not tell me if he has used anything in the last 24 hours and is non-cooperative with exam reporting he is thirsty and will not agree to anything until he receives water. He denies falling or head injury but has multiple abrasions noted to his BLEs by EMS and abrasion to the back of his head. History otherwise limited 2/2 pt being uncooperative.. Historical: - Allergies: 10:43 No Known Allergies; bp - Home Meds: 10:43 Keppra Oral [Active]; bp - PMHx: 10:43 Seizures; atypical; bp - Immunization history:: Adult Immunizations unknown. - Social history:: Smoking status: unknown. ROS: 10:48 Unable to obtain ROS due to patient being uncooperative. sd2 11:16 Unable to obtain ROS due to patient being uncooperative. sd2 Exam: 10:48 Constitutional: This is a well developed, well nourished patient who is awake, alert, sd2 and in no acute distress. Head/Face: Normocephalic, posterior scalp abrasion noted Eyes: EOMI, normal conjunctiva bilaterally Chest/axilla: Normal chest wall appearance and motion. Nontender with no deformity. Cardiovascular: Regular rate and rhythm with a normal S1 and S2. No gallops, murmurs, or rubs. 2+ distal pulses. Respiratory: Lungs have equal breath sounds bilaterally, clear to auscultation and percussion. No rales, rhonchi or wheezes noted. No increased work of breathing, no retractions or nasal flaring. Abdomen/GI: Soft, non-tender, with normal bowel sounds. No guarding or rebound. No evidence of tenderness throughout. Back: No spinal tenderness. No costovertebral tenderness. Full range of motion. Skin: Warm, dry with normal turgor. Normal color with no rashes, no lesions, and no evidence of cellulitis. Scattered abrasions noted to BLEs. MS/ Extremity: Pulses equal, no cyanosis. Neurovascular intact. Full, normal range of motion. Ambulatory without difficulty. Neuro: Awake and alert, GCS 15, oriented to person, place, time, and situation. CN appear grossly intact although patient not fully cooperative with exam. 5/5 strength noted to all 4 extremities. Sensation intact. Vital Signs: 10:54 BP 136 / 71; Pulse 73; Resp 18; Pulse Ox 98% ; bp MDM: 10:40 Patient medically screened. sd2 10:56 Differential Diagnosis seizure, post-ictal state, medication non-compliance, sd2 dehydration, electrolyte abnormality, ICH, substance abuse among others. Data reviewed: vital signs, nurses notes, radiologic studies, CT scan. Medical screen evaluation completed. [facility] emergency medical condition absent. 11:09 Counseling: I had a detailed discussion with the patient and/or guardian regarding: the sd2 historical points, exam findings, and any diagnostic results supporting the discharge/admit diagnosis, radiology results, the need for outpatient follow up, to return to the emergency department if symptoms worsen or persist or if there are any questions or concerns that arise at home. Refusal of service: The patient/guardian displays adequate decision making capability and despite a detailed discussion of alternatives, benefits, risks, and consequences refuses: all lab tests, Medications. ED course: Pt resting comfortably, awake, alert and oriented x3. Reports last marijuana use and ETOH use was 2 nights ago. pt is ambulatory without difficulty with no focal neuro deficits. He states he did not take his Keppra this morning but will take it upon returning home. After full discussion, pt continues to have an informed refusal of all labs and medications. He would like to be discharged home. He is tolerating PO and verbalizes understanding of discharge plan and strict return precautions.. 09/26 10:41 Order name: CT Head C Spine; Complete Time: 11:06 sd2 Administered Medications: No medications were administered Disposition Summary: 09/26/21 11:14 Discharge Ordered Location: Home sd2 Problem: an ongoing problem sd2 Symptoms: have improved sd2 Condition: Stable sd2 Diagnosis - Epileptic seizures related to external causes, not intractable sd2 - Medication non-compliance sd2 - Polysubstance abuse sd2 Followup: sd2 - With: Private Physician - When: 2 - 3 days - Reason: Recheck today's complaints, Continuance of care, Re-evaluation by your physician Followup: sd2 - With: Emergency Department - When: As needed - Reason: Discharge Instructions: - Discharge Summary Sheet sd2 - Substance Use Disorder sd2 - Seizure, Adult sd2 Forms: - Medication Reconciliation Form sd2 - Thank You Letter sd2 - Antibiotic Education sd2 - Prescription Opioid Use sd2 Signatures: Dispatcher [employer] Jayden Corrales, RN RN Lala Berger sd2
[2021-09-26 11:47] VITALS: BP 136/71; O2SAT 98
== END 2021-09-26 11:34 | disposition home or self-care (01) ==
LOC: ER 10:39
DX: G40.509 Epileptic seizures related to external causes, not intractable, without status epilepticus (principal); Z91.14 Patient's other noncompliance with medication regimen; F19.10 Other psychoactive substance abuse, uncomplicated
CPT/HCPCS: 70450; 72125; 99284